=== PATIENT | female | born 1930 | race Caucasian/White ===

== ENCOUNTER 2016-02-10 20:48 | Inpatient (IN) | payer MEDICARE, MEDICAID ==
[~2016-02-10] VITALS: Ht 170.2 cm; Wt 85.7 kg
[~2016-02-10 20:48] MED LIST: ATOR10TA PO; CARV3.122 PO; DEXT1CAP3 PO; FURO40TA5 PO; OLAN2.5T3 PO; OLAN5TAB3 PO
[2016-02-10] MEDS ORDERED: IV NS 0.9% 500 ML BAG IV ONE (21:00)
[2016-02-10] MEDS ORDERED: IV NS 0.9% 1,000 ML BAG IV ONE ×2 (21:00→21:30)
[2016-02-10] MEDS ORDERED: SECONDARY IV SET 1 EA INFUS.SET MC ONE (21:10)
[2016-02-10] MEDS ORDERED: IV SET PRIMARY 1 EA INFUS.SET MC ONE (21:10)
[2016-02-10] MEDS ORDERED: IV NS 0.9% 2,000 ML ONE (21:10)
[2016-02-10] MEDS ORDERED: IV NS 0.9% 500 ML IV ONE (21:10)
[2016-02-10 21:16] LABS: BASOPHILS % (AUTO) 0.1 % (0.0-2.0); DIFF TOTAL % 100 %; EOSINOPHILS % (AUTO) 0.3 % (0.0-6.0); HEMATOCRIT 29 % (33-45); HEMOGLOBIN 9.8 g/dL (11.5-14.8); LYMPHOCYTES # (AUTO) 0.8 /CMM (0.8-4.8); LYMPHOCYTES % (AUTO) 9.4 % (20.0-44.0); MEAN CORPUSCULAR HEMOGLOBIN 25 PG (26.0-33.0); MEAN CORPUSCULAR HGB CONC 34 g/dl (31.0-36.0); MEAN CORPUSCULAR VOLUME 75 fL (82-100); MONOCYTES # (AUTO) 0.8 /CMM (0.1-1.30); MONOCYTES % (AUTO) 8.9 % (2.0-12.0); NEUTROPHILS # (AUTO) 7.3 /CMM (1.8-8.9); NEUTROPHILS % (AUTO) 81.3 % (43.0-81.0); PLATELET COUNT (AUTO) 196 /CMM (150-450); RED BLOOD CELL COUNT(AUTO) 3.87 MIL/uL (4.0-5.2); WHITE BLOOD COUNT (AUTO) 8.9 K/uL (4.3-11.0)
[2016-02-10 21:20] LABS: KETONES,URINE 15 (NEGATIVE); LEUKOCYTE ESTERASE ,URINE Negative (NEGATIVE)
[2016-02-10 21:22] LABS: CALCIUM, SERUM 7.4 mg/dL (8.5-10.1); CREATININE 0.9 mg/dL (0.6-1.3)
[2016-02-10 21:25] LABS: INR 1.13 (0.87-1.13); PROTHROMBIN TIME 11.9 SECS (9.5-12.7)
[2016-02-10 21:28] LABS: ALBUMIN 1.7 g/dL (3.4-5.0); BILIRUBIN,DIRECT 0.3 mg/dL (0.0-0.2); BILIRUBIN,TOTAL 0.8 mg/dL (0.2-1.0); INDIRECT BILIRUBIN 0.5 mg/dL (0.0-1.1); TOTAL PROTEIN, SERUM 5.5 g/dL (6.4-8.2)
[2016-02-10 21:28] LABS: ADD UA MICROSCOPIC YES
[2016-02-10] MEDS ORDERED: ACETAMINOPHEN 650 MG/SUPP.RECT RC ONE ×2 (21:28→21:30)
[2016-02-10 21:29] LABS: TROPONIN I 0.036 ng/mL (0.00-0.056)
[2016-02-10] MEDS ORDERED: VANCOMYCIN 1 GM VIAL ONE (21:29)
[2016-02-10] MEDS ORDERED: IV D5W 250 ML IV ONE (21:29)
[2016-02-10] MEDS ORDERED: IV D5W 50 ML IV ONE (21:29)
[2016-02-10] MEDS ORDERED: PIPERACILLIN /TAZOBACTAM 3.375 G VIAL IV ONE (21:29)
[2016-02-10] MEDS ORDERED: IV SET PRIMARY PUMP SET 1 EA INFUS.SET MC ONE (21:29)
[2016-02-10] MEDS ORDERED: VANCOMYCIN 1 GM in IV D5W 250 ML IV ONE (21:30)
[2016-02-10] MEDS ORDERED: PIPERACILLIN /TAZOBACTAM 3.375 G in IV D5W 50 ML IV ONE (21:30)
[2016-02-10] MEDS ORDERED: CEFT1VIA15 IV (21:37)
[2016-02-10] MEDS ORDERED: ENOX40DI SQ (21:37)
[2016-02-10] MEDS ORDERED: PANT40TA2 PO (21:37)
[2016-02-10] MEDS ORDERED: MIRT15TA PO (21:37)
[2016-02-10 21:45] LABS: ADD URINE CULTURE NO; MUCUS,URINE Few /LPF (None Seen); RBC,URINE 2-3/HPF /HPF (0-2); WBC,URINE 0-2 /HPF (0-3)
[2016-02-10 22:15] VITALS: BP 102/49
[2016-02-10 22:30] VITALS: BP 102/49
[2016-02-10] MEDS ORDERED: ACETAMINOPHEN 650 MG/SUPP.RECT RC PRN (23:00)
[2016-02-10] MEDS ORDERED: IV NS 0.9% 1,000 ML BAG IV SCH (23:00)
[2016-02-10] MEDS ORDERED: ACETAMINOPHEN LIQUID 160 MG/5 ML BOTTLE PO PRN ×2 (23:00)
[2016-02-10] MEDS ORDERED: IV NS 0.9% 1,000 ML ONE (23:03)
[2016-02-11 02:00] VITALS: BP 113/58
[2016-02-11] MEDS ORDERED: SECONDARY IV SET 1 EA INFUS.SET MC ONE ×4 (04:53→15:36)
[2016-02-11] MEDS ORDERED: PIPERACILLIN /TAZOBACTAM 3.375 G VIAL IV ONE (04:53)
[2016-02-11] MEDS ORDERED: IV D5W 50 ML IV ONE (04:53)
[2016-02-11] MEDS: PIPERACILLIN /TAZOBACTAM 3.375 G in IV D5W 50 ML IV SCH ×4 (05:14→17:46)
[2016-02-11 06:47] LABS: BASOPHILS % (AUTO) 0.1 % (0.0-2.0); DIFF TOTAL % 100 %; EOSINOPHILS # (AUTO) 0.1 /CMM (0.0-0.7); HEMATOCRIT 28 % (33-45); LYMPHOCYTES # (AUTO) 0.7 /CMM (0.8-4.8); LYMPHOCYTES % (AUTO) 10.2 % (20.0-44.0); MEAN CORPUSCULAR HEMOGLOBIN 25 PG (26.0-33.0); MEAN CORPUSCULAR HGB CONC 32 g/dl (31.0-36.0); MEAN CORPUSCULAR VOLUME 77 fL (82-100); MONOCYTES # (AUTO) 0.7 /CMM (0.1-1.30); MONOCYTES % (AUTO) 9.8 % (2.0-12.0); NEUTROPHILS # (AUTO) 5.4 /CMM (1.8-8.9); NEUTROPHILS % (AUTO) 78.9 % (43.0-81.0); PLATELET COUNT (AUTO) 192 /CMM (150-450); RED BLOOD CELL COUNT(AUTO) 3.61 MIL/uL (4.0-5.2); WHITE BLOOD COUNT (AUTO) 6.8 K/uL (4.3-11.0)
[2016-02-11 07:09] LABS: CALCIUM, SERUM 7.2 mg/dL (8.5-10.1); CREATININE 0.8 mg/dL (0.6-1.3); POTASSIUM 2.9 mmol/L (3.5-5.1)
[2016-02-11 07:10] LABS: TROPONIN I 0.023 ng/mL (0.00-0.056)
[2016-02-11 08:00] VITALS: BP 120/73
[2016-02-11 08:31] LABS: BAND % (MANUAL) 24 % (0.0-5.0); EOSINOPHILS % (MANUAL) 1 % (0-4); LYMPHOCYTES % (MANUAL) 10 % (16-48); METAMYELOCYTES % 2 % (0-0); PLATELET ESTIMATE ADEQUATE
[2016-02-11 08:35] LABS: ANISOCYTOSIS 1+; HYPOCHROMASIA 1+; MICROCYTOSIS 1+
[2016-02-11] MEDS ORDERED: PANTOPRAZOLE 40 MG VIAL IV SCH ×2 (09:00)
[2016-02-11 09:02] LABS: IRON, SERUM 14 ug/dl (50-175); PERCENT SATURATION 12 % (14-33); TOTAL IRON BINDING CAPACITY 118 ug/dl (250-450)
[2016-02-11] MEDS: OLANZAPINE 2.5 MG TABLET PO SCH (09:07)
[2016-02-11] MEDS: POTASSIUM CL. PREMIX PERIPHER. 50 ML IV SCH ×8 (09:07→16:52)
[2016-02-11] MEDS: CARVEDILOL 3.125 MG TABLET PO SCH ×2 (09:07→16:52)
[2016-02-11] MEDS: ENOXAPARIN SODIUM 30 MG/0.3 ML DISP.SYRIN SQ SCH (09:10)
[2016-02-11 09:19] LABS: CHOLESTEROL 51 mg/dL (<200); LDL 16 mg/dL (0-99); TRIGLYCERIDES 146 mg/dL (30-150)
[2016-02-11 09:20] LABS: HDL CHOLESTEROL < 10 mg/dL (40-60)
[2016-02-11] MEDS ORDERED: FEE PK DOSING 1 MIN EA MC ONE (09:56)
[2016-02-11] MEDS ORDERED: Z GUARD REMEDY 2 OZ OINT TP PRN (10:00)
[2016-02-11] MEDS: IV NS 0.9% 1,000 ML IV PRN (10:38)
[2016-02-11] MEDS: Z GUARD REMEDY 2 OZ OINT TP SCH ×2 (10:45→17:47)
[2016-02-11 11:55] VITALS: BP 116/73
[2016-02-11 12:01] VITALS: BP 116/73
[2016-02-11] MEDS: ALBUTEROL FS 2.5 MG/3 ML VIAL.NEB NEB PRN (12:23)
[2016-02-11] MEDS: VANCOMYCIN 1 GM in IV D5W 250 ML IV SCH (15:42)
[2016-02-11 16:00] VITALS: BP 130/71
[2016-02-11 20:00] VITALS: BP 101/55
[2016-02-11] MEDS: OLANZAPINE 5 MG TABLET PO SCH (21:31)
[2016-02-11] MEDS ORDERED: ATORVASTATIN 10 MG TABLET PO SCH (22:00)
[2016-02-11] MEDS ORDERED: MIRTAZAPINE 15 MG TABLET PO SCH (22:00)
[2016-02-11] MEDS ORDERED: OLANZAPINE 5 MG TABLET PO SCH (22:00)
[2016-02-11] MEDS ORDERED: ACETAMINOPHEN 650 MG/20.3 ML UDC ONE (22:05)
[2016-02-12] VITALS: BP 105/58
[2016-02-12] MEDS: PIPERACILLIN /TAZOBACTAM 3.375 G in IV D5W 50 ML IV SCH ×5 (00:37→23:35)
[2016-02-12] MEDS ORDERED: IV NS 0.9% 1,000 ML ONE (03:08)
[2016-02-12] MEDS: IV NS 0.9% 1,000 ML IV PRN (03:15)
[2016-02-12 04:00] VITALS: BP 105/61
[2016-02-12 06:06] LABS: BASOPHILS % (AUTO) 0.1 % (0.0-2.0); DIFF TOTAL % 100 %; EOSINOPHILS # (AUTO) 0.1 /CMM (0.0-0.7); EOSINOPHILS % (AUTO) 0.6 % (0.0-6.0); HEMATOCRIT 28 % (33-45); LYMPHOCYTES # (AUTO) 0.7 /CMM (0.8-4.8); LYMPHOCYTES % (AUTO) 7.5 % (20.0-44.0); MEAN CORPUSCULAR HEMOGLOBIN 25 PG (26.0-33.0); MEAN CORPUSCULAR HGB CONC 32 g/dl (31.0-36.0); MEAN CORPUSCULAR VOLUME 77 fL (82-100); MONOCYTES # (AUTO) 0.4 /CMM (0.1-1.30); MONOCYTES % (AUTO) 4.1 % (2.0-12.0); NEUTROPHILS # (AUTO) 8.4 /CMM (1.8-8.9); NEUTROPHILS % (AUTO) 87.7 % (43.0-81.0); PLATELET COUNT (AUTO) 177 /CMM (150-450); RED BLOOD CELL COUNT(AUTO) 3.64 MIL/uL (4.0-5.2); WHITE BLOOD COUNT (AUTO) 9.6 K/uL (4.3-11.0)
[2016-02-12 06:55] LABS: TROPONIN I 0.019 ng/mL (0.00-0.056)
[2016-02-12 07:08] LABS: POTASSIUM 3.7 mmol/L (3.5-5.1)
[2016-02-12 07:09] LABS: ALBUMIN 1.5 g/dL (3.4-5.0); BILIRUBIN,TOTAL 0.9 mg/dL (0.2-1.0); CALCIUM, SERUM 7.4 mg/dL (8.5-10.1); PHOSPHORUS 3.2 mg/dL (2.5-4.9)
[2016-02-12 07:10] LABS: TOTAL PROTEIN, SERUM 5.1 g/dL (6.4-8.2)
[2016-02-12 08:00] VITALS: BP 118/71
[2016-02-12] MEDS: Z GUARD REMEDY 2 OZ OINT TP SCH ×2 (09:00→17:35)
[2016-02-12] MEDS: OLANZAPINE 2.5 MG TABLET PO SCH (09:48)
[2016-02-12] MEDS: CARVEDILOL 3.125 MG TABLET PO SCH ×2 (09:49→17:00)
[2016-02-12] MEDS: VANCOMYCIN 1 GM in IV D5W 250 ML IV SCH (09:50)
[2016-02-12] MEDS: ENOXAPARIN SODIUM 30 MG/0.3 ML DISP.SYRIN SQ SCH (09:51)
[2016-02-12] MEDS: ALBUTEROL FS 2.5 MG/3 ML VIAL.NEB NEB PRN ×2 (09:52→17:41)
[2016-02-12 12:00] VITALS: BP 142/68
[2016-02-12 16:00] VITALS: BP 113/53
[2016-02-12] MEDS: SOD FERRIC GLUC 125 MG in IV NS 0.9% 100 ML IV SCH (16:40)
[2016-02-12] MEDS: LACTOBACILLUS RHAMNOSUS GG 1 EACH CAP.SPRINK PO SCH (17:34)
[2016-02-12 20:00] VITALS: BP 103/58
[2016-02-12] MEDS: OLANZAPINE 5 MG TABLET PO SCH (21:25)
[2016-02-12] MEDS ORDERED: BISACODYL SUPP (10 MG) 10 MG/SUPP.RECT SUPP.RECT RC ONE (23:20)
[2016-02-12] MEDS ORDERED: IV NS 0.9% 250 ML IV ONE (23:29)
[2016-02-12] MEDS ORDERED: BISACODYL SUPP (10 MG) 10 MG/SUPP.RECT SUPP.RECT RC PRN (23:30)
[2016-02-13] VITALS (14 sets, daily range): BP systolic 89–126; BP diastolic 44–96
[2016-02-13] MEDS: VANCOMYCIN 1 GM in IV D5W 250 ML IV SCH ×2 (02:55→21:00)
[2016-02-13] MEDS: PIPERACILLIN /TAZOBACTAM 3.375 G in IV D5W 50 ML IV SCH ×3 (05:02→18:21)
[2016-02-13 07:04] LABS: BASOPHILS % (AUTO) 0.1 % (0.0-2.0); DIFF TOTAL % 100 %; EOSINOPHILS % (AUTO) 0.3 % (0.0-6.0); HEMATOCRIT 28 % (33-45); LYMPHOCYTES # (AUTO) 0.8 /CMM (0.8-4.8); LYMPHOCYTES % (AUTO) 7.9 % (20.0-44.0); MEAN CORPUSCULAR HEMOGLOBIN 25 PG (26.0-33.0); MEAN CORPUSCULAR HGB CONC 32 g/dl (31.0-36.0); MEAN CORPUSCULAR VOLUME 77 fL (82-100); MONOCYTES # (AUTO) 0.1 /CMM (0.1-1.30); NEUTROPHILS # (AUTO) 9.1 /CMM (1.8-8.9); NEUTROPHILS % (AUTO) 90.7 % (43.0-81.0); PLATELET COUNT (AUTO) 170 /CMM (150-450); RED BLOOD CELL COUNT(AUTO) 3.64 MIL/uL (4.0-5.2)
[2016-02-13 07:21] LABS: BILIRUBIN,TOTAL 0.7 mg/dL (0.2-1.0); CALCIUM, SERUM 7.6 mg/dL (8.5-10.1); CREATININE 1.2 mg/dL (0.6-1.3); PHOSPHORUS 3.5 mg/dL (2.5-4.9); POTASSIUM 3.6 mmol/L (3.5-5.1); TOTAL PROTEIN, SERUM 5.1 g/dL (6.4-8.2)
[2016-02-13 07:37] LABS: ALBUMIN 1.4 g/dL (3.4-5.0)
[2016-02-13] MEDS: Z GUARD REMEDY 2 OZ OINT TP SCH ×2 (09:50→17:37)
[2016-02-13] MEDS: OLANZAPINE 2.5 MG TABLET PO SCH (09:50)
[2016-02-13] MEDS: CARVEDILOL 3.125 MG TABLET PO SCH ×2 (09:51→17:00)
[2016-02-13] MEDS: LACTOBACILLUS RHAMNOSUS GG 1 EACH CAP.SPRINK PO SCH ×2 (09:51→17:00)
[2016-02-13] MEDS: ENOXAPARIN SODIUM 30 MG/0.3 ML DISP.SYRIN SQ SCH (09:52)
[2016-02-13] MEDS: ALBUTEROL FS 2.5 MG/3 ML VIAL.NEB NEB PRN (12:57)
[2016-02-13 13:02] LABS: ABG BASE EXCESS -8.5 mmol/L; ABG HCO3 14.9 mmol/L; ABG PCO2 24.4 mmHg (35.0-45.0); ABG PH 7.403 (7.350-7.450); ABG PO2 118.7 mmHg (75.0-100.0); ALLEN TEST Pass; AaDO2 174.4 mmHg; O2Hb 95.2 % (94.0-97.0)
[2016-02-13] MEDS: SOD FERRIC GLUC 125 MG in IV NS 0.9% 100 ML IV SCH (15:48)
[2016-02-13 17:21] LABS: ABG BASE EXCESS -9.5 mmol/L; ABG HCO3 13.9 mmol/L; ABG PCO2 23.1 mmHg (35.0-45.0); ABG PH 7.397 (7.350-7.450); ABG PO2 94.6 mmHg (75.0-100.0); ABG TOTAL HEMOGLOBIN 9.9 G/dL (12.0-16.0); AaDO2 113.7 mmHg; O2Hb 93.9 % (94.0-97.0)
[2016-02-13 17:43] LABS: BASOPHILS # (AUTO) 0.1 /CMM (0.0-0.2); BASOPHILS % (AUTO) 0.6 % (0.0-2.0); DIFF TOTAL % 100 %; EOSINOPHILS % (AUTO) 0.1 % (0.0-6.0); HEMATOCRIT 31 % (33-45); HEMOGLOBIN 9.9 g/dL (11.5-14.8); LYMPHOCYTES # (AUTO) 1.3 /CMM (0.8-4.8); LYMPHOCYTES % (AUTO) 8.4 % (20.0-44.0); MEAN CORPUSCULAR HEMOGLOBIN 25 PG (26.0-33.0); MEAN CORPUSCULAR HGB CONC 32 g/dl (31.0-36.0); MEAN CORPUSCULAR VOLUME 76 fL (82-100); MONOCYTES # (AUTO) 0.6 /CMM (0.1-1.30); MONOCYTES % (AUTO) 3.7 % (2.0-12.0); NEUTROPHILS # (AUTO) 13.1 /CMM (1.8-8.9); NEUTROPHILS % (AUTO) 87.2 % (43.0-81.0); PLATELET COUNT (AUTO) 198 /CMM (150-450); RED BLOOD CELL COUNT(AUTO) 4.07 MIL/uL (4.0-5.2)
[2016-02-13 17:49] LABS: CALCIUM, SERUM 8.1 mg/dL (8.5-10.1); CREATININE 1.6 mg/dL (0.6-1.3); POTASSIUM 4.1 mmol/L (3.5-5.1)
[2016-02-13 17:54] LABS: ALBUMIN 1.6 g/dL (3.4-5.0); BILIRUBIN,TOTAL 0.9 mg/dL (0.2-1.0); TOTAL PROTEIN, SERUM 5.4 g/dL (6.4-8.2)
[2016-02-13 18:02] LABS: INR 1.27 (0.87-1.13); PROTHROMBIN TIME 13.8 SECS (9.5-12.7)
[2016-02-13 18:05] LABS: LACTIC ACID 3.4 mmol/L (0.4-2.0)
[2016-02-13] MEDS ORDERED: SECONDARY IV SET 1 EA INFUS.SET MC ONE (18:10)
[2016-02-13] MEDS ORDERED: IV NS 0.9% 1,000 ML ONE (18:25)
[2016-02-13] MEDS ORDERED: IV NS 0.9% 1,000 ML IV PRN (18:30)
[2016-02-13 18:35] LABS: LYMPHOCYTES % (MANUAL) 8 % (16-48); PLATELET ESTIMATE ADEQUATE
[2016-02-13] MEDS ORDERED: SUCCINYLCHOLINE CHLORIDE 20 MG/ML VIAL ONE (18:35)
[2016-02-13 18:36] LABS: ANISOCYTOSIS 1+; HYPOCHROMASIA 1+; MICROCYTOSIS 1+
[2016-02-13 18:40] LABS: *LACTIC ACID REFLEX FLAG YES
[2016-02-13] MEDS ORDERED: ALBUMIN 5% 500 ML IV ONE (18:50)
[2016-02-13] MEDS ORDERED: NOREPINEPHRINE 8 MG in IV D5W 500 ML IV ONE (19:00)
[2016-02-13] MEDS ORDERED: VASOPRESSIN INJ 50 UNIT in IV D5W 500 ML IV ONE (19:00)
[2016-02-13] MEDS ORDERED: CALCIUM CHLORIDE 1,000 MG/10 ML DISP.SYRIN ONE (19:19)
[2016-02-13 19:51] LABS: BILIRUBIN,DIRECT 0.5 mg/dL (0.0-0.2)
[2016-02-13] MEDS ORDERED: CELLULOSE,OXIDIZED 1 EACH EACH MC ONE (21:20)
[2016-02-13] MEDS ORDERED: PROPOFOL 100 ML IV ONE (22:51)
[2016-02-13] MEDS ORDERED: IV SET PRIMARY PUMP SET 1 EA INFUS.SET MC ONE (22:51)
[2016-02-13] MEDS ORDERED: ANESTHESIA TRAY IN PYXIS 1 EA TRAY MC ONE (23:14)
[2016-02-13] MEDS: PROPOFOL 100 ML IV PRN (23:30)
[2016-02-14] VITALS (103 sets, daily range): BP systolic 63–138; BP diastolic 40–117
[2016-02-14 00:16] LABS: ABG BASE EXCESS -8.7 mmol/L; ABG HCO3 15.3 mmol/L; ABG PCO2 26.5 mmHg (35.0-45.0); ABG PH 7.378 (7.350-7.450); ABG PO2 90.1 mmHg (75.0-100.0); ABG TOTAL HEMOGLOBIN 8.9 G/dL (12.0-16.0); ALLEN TEST Pass; AaDO2 92.7 mmHg; O2Hb 92.9 % (94.0-97.0)
[2016-02-14] MEDS ORDERED: FLUCONAZOLE IN NS 100 ML IV ONE (00:16)
[2016-02-14] MEDS: PIPERACILLIN /TAZOBACTAM 3.375 G in IV D5W 50 ML IV SCH ×4 (00:40→17:02)
[2016-02-14] MEDS ORDERED: SECONDARY IV SET 1 EA INFUS.SET MC ONE ×2 (00:52→19:56)
[2016-02-14] MEDS ORDERED: IV SET PRIMARY PUMP SET 1 EA INFUS.SET MC ONE ×3 (01:01→19:56)
[2016-02-14 01:07] LABS: BILIRUBIN,TOTAL 0.8 mg/dL (0.2-1.0); CREATININE 1.3 mg/dL (0.6-1.3); PHOSPHORUS 5.2 mg/dL (2.5-4.9); POTASSIUM 4.4 mmol/L (3.5-5.1); TOTAL PROTEIN, SERUM 1.7 g/dL (6.4-8.2)
[2016-02-14 01:12] LABS: ALBUMIN 0.5 g/dL (3.4-5.0)
[2016-02-14 01:23] LABS: CREATININE 1.3 mg/dL (0.6-1.3); POTASSIUM 4.4 mmol/L (3.5-5.1)
[2016-02-14 01:24] LABS: BILIRUBIN,TOTAL 0.8 mg/dL (0.2-1.0); PHOSPHORUS 5.2 mg/dL (2.5-4.9)
[2016-02-14 01:25] LABS: ALBUMIN 0.5 g/dL (3.4-5.0); TOTAL PROTEIN, SERUM 1.7 g/dL (6.4-8.2)
[2016-02-14] MEDS: FLUCONAZOLE IN NS 100 MG in PREMIX 1 EA IV SCH ×4 (01:26→23:34)
[2016-02-14] MEDS ORDERED: NOREPINEPHRINE 8 MG in IV D5W 500 ML IV PRN (01:30)
[2016-02-14] MEDS ORDERED: IV NS 0.9% 1,000 ML ONE (01:44)
[2016-02-14] MEDS ORDERED: ALBUMIN 25% 100 ML IV ONE (01:44)
[2016-02-14] MEDS ORDERED: ALBUMIN 25% 25 GM in PREMIX 1 EA IV ONE (02:00)
[2016-02-14] MEDS ORDERED: IV NS 0.9% 500 ML IV SCH (02:00)
[2016-02-14] MEDS ORDERED: VASOPRESSIN INJ 50 UNIT in IV D5W 497.5 ML IV PRN (02:00)
[2016-02-14] MEDS: IV NS 0.9% 1,000 ML IV PRN ×2 (03:22→17:42)
[2016-02-14] MEDS ORDERED: IV D5W 500 ML IV ONE (03:37)
[2016-02-14] MEDS ORDERED: NOREPINEPHRINE 4 MG/4 ML AMPUL IV ONE (03:37)
[2016-02-14 04:00] LABS: DIFF TOTAL % 100 %; HEMATOCRIT 25 % (33-45); HEMOGLOBIN 7.9 g/dL (11.5-14.8); LYMPHOCYTES # (AUTO) 1.9 /CMM (0.8-4.8); LYMPHOCYTES % (AUTO) 9.4 % (20.0-44.0); MEAN CORPUSCULAR HEMOGLOBIN 24 PG (26.0-33.0); MEAN CORPUSCULAR HGB CONC 31 g/dl (31.0-36.0); MEAN CORPUSCULAR VOLUME 77 fL (82-100); MONOCYTES % (AUTO) 24.3 % (2.0-12.0); NEUTROPHILS # (AUTO) 13.7 /CMM (1.8-8.9); NEUTROPHILS % (AUTO) 66.3 % (43.0-81.0); PLATELET COUNT (AUTO) 174 /CMM (150-450); RED BLOOD CELL COUNT(AUTO) 3.29 MIL/uL (4.0-5.2); WHITE BLOOD COUNT (AUTO) 20.7 K/uL (4.3-11.0)
[2016-02-14] MEDS: NOREPINEPHRINE 8 MG in IV D5W 500 ML IV PRN ×2 (04:09→08:36)
[2016-02-14] MEDS ORDERED: IV NS 0.9% 500 ML IV ONE ×2 (04:48→07:46)
[2016-02-14 05:28] LABS: CALCIUM, SERUM 7.2 mg/dL (8.5-10.1); CREATININE 1.5 mg/dL (0.6-1.3); PHOSPHORUS 4.9 mg/dL (2.5-4.9); POTASSIUM 3.8 mmol/L (3.5-5.1)
[2016-02-14 06:19] LABS: HEMOGLOBIN 7.8 g/dL (11.5-14.8)
[2016-02-14] MEDS ORDERED: PROPOFOL 100 ML IV ONE (06:29)
[2016-02-14] MEDS: PROPOFOL 100 ML IV PRN ×2 (06:45→15:29)
[2016-02-14] MEDS ORDERED: BLOOD IV SET 1 EA INFUS.SET MC ONE (07:46)
[2016-02-14] MEDS: Z GUARD REMEDY 2 OZ OINT TP SCH ×2 (08:42→17:02)
[2016-02-14] MEDS: ENOXAPARIN SODIUM 30 MG/0.3 ML DISP.SYRIN SQ SCH (08:42)
[2016-02-14] MEDS: SOD FERRIC GLUC 125 MG in IV NS 0.9% 100 ML IV SCH (14:01)
[2016-02-14] MEDS: NOREPINEPHRINE 16 MG in IV D5W 500 ML IV PRN (14:02)
[2016-02-15] VITALS (84 sets, daily range): BP systolic 84–139; BP diastolic 42–78
[2016-02-15] MEDS: PIPERACILLIN /TAZOBACTAM 3.375 G in IV D5W 50 ML IV SCH ×5 (00:32→23:12)
[2016-02-15] MEDS: PROPOFOL 100 ML IV PRN ×3 (00:33→22:47)
[2016-02-15] MEDS: IV NS 0.9% 1,000 ML IV PRN ×2 (04:41→16:17)
[2016-02-15] MEDS: IV NS 0.9% 500 ML IV PRN ×2 (04:42→09:22)
[2016-02-15 05:30] LABS: BASOPHILS % (AUTO) 0.1 % (0.0-2.0); DIFF TOTAL % 100 %; EOSINOPHILS % (AUTO) 0.1 % (0.0-6.0); HEMATOCRIT 31 % (33-45); HEMOGLOBIN 10.1 g/dL (11.5-14.8); LYMPHOCYTES # (AUTO) 1.5 /CMM (0.8-4.8); LYMPHOCYTES % (AUTO) 5.6 % (20.0-44.0); MEAN CORPUSCULAR HEMOGLOBIN 26 PG (26.0-33.0); MEAN CORPUSCULAR HGB CONC 33 g/dl (31.0-36.0); MEAN CORPUSCULAR VOLUME 80 fL (82-100); MONOCYTES # (AUTO) 0.1 /CMM (0.1-1.30); MONOCYTES % (AUTO) 0.5 % (2.0-12.0); NEUTROPHILS # (AUTO) 25.7 /CMM (1.8-8.9); NEUTROPHILS % (AUTO) 93.7 % (43.0-81.0); PLATELET COUNT (AUTO) 106 /CMM (150-450); RED BLOOD CELL COUNT(AUTO) 3.85 MIL/uL (4.0-5.2); WHITE BLOOD COUNT (AUTO) 27.5 K/uL (4.3-11.0)
[2016-02-15 05:38] LABS: BILIRUBIN,TOTAL 1.7 mg/dL (0.2-1.0); CALCIUM, SERUM 7.2 mg/dL (8.5-10.1); PHOSPHORUS 4.7 mg/dL (2.5-4.9); POTASSIUM 3.9 mmol/L (3.5-5.1)
[2016-02-15 05:39] LABS: TROPONIN I 0.028 ng/mL (0.00-0.056)
[2016-02-15] MEDS: NOREPINEPHRINE 16 MG in IV D5W 500 ML IV PRN ×2 (05:39→17:12)
[2016-02-15 06:11] LABS: ALBUMIN 1.3 g/dL (3.4-5.0)
[2016-02-15 08:32] LABS: ABG BASE EXCESS -9.8 mmol/L; ABG HCO3 13.1 mmol/L; ABG PCO2 21.3 mmHg (35.0-45.0); ABG PH 7.406 (7.350-7.450); ABG TOTAL HEMOGLOBIN 10.8 G/dL (12.0-16.0); ALLEN TEST Pass; AaDO2 187.5 mmHg
[2016-02-15] MEDS ORDERED: IV NS 0.9% 500 ML IV ONE ×2 (09:06→09:30)
[2016-02-15] MEDS ORDERED: IV SET PRIMARY PUMP SET 1 EA INFUS.SET MC ONE (09:07)
[2016-02-15] MEDS: VANCOMYCIN 1 GM in IV D5W 250 ML IV SCH (09:18)
[2016-02-15] MEDS: Z GUARD REMEDY 2 OZ OINT TP SCH ×2 (09:19→16:17)
[2016-02-15] MEDS: ENOXAPARIN SODIUM 30 MG/0.3 ML DISP.SYRIN SQ SCH (09:19)
[2016-02-15] MEDS: ALBUMIN 25% 25 GM in PREMIX 1 EA IV SCH ×3 (13:08→22:39)
[2016-02-15 14:54] LABS: ANISOCYTOSIS 1+; BAND % (MANUAL) 2 % (0.0-5.0); LYMPHOCYTES % (MANUAL) 10 % (16-48); PLATELET ESTIMATE DECREASED
[2016-02-15 14:55] LABS: MICROCYTOSIS 1+
[2016-02-15] MEDS: SOD FERRIC GLUC 125 MG in IV NS 0.9% 100 ML IV SCH (16:16)
[2016-02-15] MEDS: FLUCONAZOLE IN NS 100 MG in PREMIX 1 EA IV SCH ×2 (22:41)
[2016-02-16] VITALS (72 sets, daily range): BP systolic 87–145; BP diastolic 46–70
[2016-02-16] MEDS: IV NS 0.9% 1,000 ML IV PRN (03:24)
[2016-02-16 05:19] LABS: BASOPHILS % (AUTO) 0.2 % (0.0-2.0); DIFF TOTAL % 100 %; EOSINOPHILS % (AUTO) 0.2 % (0.0-6.0); HEMATOCRIT 26 % (33-45); HEMOGLOBIN 8.5 g/dL (11.5-14.8); LYMPHOCYTES # (AUTO) 0.9 /CMM (0.8-4.8); MEAN CORPUSCULAR HEMOGLOBIN 27 PG (26.0-33.0); MEAN CORPUSCULAR HGB CONC 33 g/dl (31.0-36.0); MEAN CORPUSCULAR VOLUME 80 fL (82-100); MONOCYTES # (AUTO) 0.2 /CMM (0.1-1.30); MONOCYTES % (AUTO) 0.9 % (2.0-12.0); NEUTROPHILS % (AUTO) 93.7 % (43.0-81.0); PLATELET COUNT (AUTO) 57 /CMM (150-450); RED BLOOD CELL COUNT(AUTO) 3.19 MIL/uL (4.0-5.2); WHITE BLOOD COUNT (AUTO) 18.1 K/uL (4.3-11.0)
[2016-02-16 05:30] LABS: PHOSPHORUS 4.5 mg/dL (2.5-4.9); POTASSIUM 3.1 mmol/L (3.5-5.1)
[2016-02-16] MEDS: ALBUMIN 25% 25 GM in PREMIX 1 EA IV SCH (05:30)
[2016-02-16] MEDS: PIPERACILLIN /TAZOBACTAM 3.375 G in IV D5W 50 ML IV SCH ×3 (05:30→18:15)
[2016-02-16 05:58] LABS: BAND % (MANUAL) 7 % (0.0-5.0); LYMPHOCYTES % (MANUAL) 5 % (16-48)
[2016-02-16 05:59] LABS: ANISOCYTOSIS 1+; BASOPHILS % (MANUAL) 0 % (0.0-2.0); EOSINOPHILS % (MANUAL) 0 % (0-4); HYPOCHROMASIA 2+; OVALOCYTES 1+; PLATELET ESTIMATE DECREASED; SCHISTOCYTES 1+
[2016-02-16] MEDS ORDERED: IV NS 0.9% 500 ML IV ONE (06:03)
[2016-02-16] MEDS: POTASSIUM CL. PREMIX PERIPHER. 50 ML IV SCH ×2 (09:44→10:52)
[2016-02-16] MEDS: Z GUARD REMEDY 2 OZ OINT TP SCH ×2 (09:45→16:26)
[2016-02-16] MEDS: ENOXAPARIN SODIUM 30 MG/0.3 ML DISP.SYRIN SQ SCH (09:45)
[2016-02-16 10:23] LABS: ABG BASE EXCESS -11.7 mmol/L; ABG HCO3 14.2 mmol/L; ABG PCO2 31.8 mmHg (35.0-45.0); ABG PH 7.267 (7.350-7.450); ABG PO2 159.3 mmHg (75.0-100.0); ABG TOTAL HEMOGLOBIN 8.8 G/dL (12.0-16.0); ALLEN TEST Pass; AaDO2 161.4 mmHg; O2Hb 95.9 % (94.0-97.0)
[2016-02-16] MEDS: NOREPINEPHRINE 16 MG in IV D5W 500 ML IV PRN (12:07)
[2016-02-16] MEDS: SOD FERRIC GLUC 125 MG in IV NS 0.9% 100 ML IV SCH (16:26)
[2016-02-16] MEDS ORDERED: IV SET PRIMARY PUMP SET 1 EA INFUS.SET MC ONE (16:43)
[2016-02-16] MEDS: VANCOMYCIN 1 GM in IV D5W 250 ML IV SCH (20:05)
[2016-02-16] MEDS: PROPOFOL 100 ML IV PRN (20:06)
[2016-02-16] MEDS: FLUCONAZOLE IN NS 100 MG in PREMIX 1 EA IV SCH ×2 (23:39)
[2016-02-17] VITALS (56 sets, daily range): BP systolic 87–130; BP diastolic 44–96
[2016-02-17] MEDS: PIPERACILLIN /TAZOBACTAM 3.375 G in IV D5W 50 ML IV SCH ×5 (00:25→23:00)
[2016-02-17] MEDS ORDERED: IV NS 0.9% 250 ML IV ONE (01:26)
[2016-02-17] MEDS ORDERED: IV NS 0.9% 500 ML IV ONE (01:27)
[2016-02-17 06:01] LABS: CALCIUM, SERUM 7.4 mg/dL (8.5-10.1); CREATININE 1.9 mg/dL (0.6-1.3); POTASSIUM 2.9 mmol/L (3.5-5.1)
[2016-02-17 06:24] LABS: CREATININE, URINE 34.4 MG/DL (30.0-125.0)
[2016-02-17 06:42] LABS: KETONES,URINE NEGATIVE (NEGATIVE); LEUKOCYTE ESTERASE ,URINE NEGATIVE (NEGATIVE); PH,URINE 5.5 (5.0-8.0)
[2016-02-17 06:51] LABS: ADD UA MICROSCOPIC YES
[2016-02-17 08:39] LABS: ABG BASE EXCESS -7.9 mmol/L; ABG PCO2 22.7 mmHg (35.0-45.0); ABG PH 7.439 (7.350-7.450); ABG PO2 101.5 mmHg (75.0-100.0); ABG TOTAL HEMOGLOBIN 8.6 G/dL (12.0-16.0); ALLEN TEST Pass; AaDO2 121.7 mmHg; O2Hb 94.8 % (94.0-97.0)
[2016-02-17] MEDS ORDERED: SECONDARY IV SET 1 EA INFUS.SET MC ONE (08:53)
[2016-02-17] MEDS: POTASSIUM CL. PREMIX PERIPHER. 50 ML IV SCH ×10 (08:54→18:57)
[2016-02-17] MEDS: ENOXAPARIN SODIUM 30 MG/0.3 ML DISP.SYRIN SQ SCH (08:57)
[2016-02-17] MEDS: Z GUARD REMEDY 2 OZ OINT TP SCH ×2 (08:59→16:56)
[2016-02-17] MEDS ORDERED: IV SET PRIMARY PUMP SET 1 EA INFUS.SET MC ONE ×4 (10:20→21:34)
[2016-02-17 10:25] LABS: ADD URINE CULTURE NO; WBC,URINE 0-2 /HPF (0-3)
[2016-02-17] MEDS: PROPOFOL 100 ML IV PRN (10:25)
[2016-02-17 11:22] LABS: BASOPHILS # (AUTO) 0.2 /CMM (0.0-0.2); DIFF TOTAL % 100 %; EOSINOPHILS # (AUTO) 0.1 /CMM (0.0-0.7); EOSINOPHILS % (AUTO) 0.3 % (0.0-6.0); HEMATOCRIT 26 % (33-45); HEMOGLOBIN 8.6 g/dL (11.5-14.8); LYMPHOCYTES # (AUTO) 0.8 /CMM (0.8-4.8); LYMPHOCYTES % (AUTO) 4.1 % (20.0-44.0); MEAN CORPUSCULAR HEMOGLOBIN 26 PG (26.0-33.0); MEAN CORPUSCULAR HGB CONC 33 g/dl (31.0-36.0); MEAN CORPUSCULAR VOLUME 79 fL (82-100); MONOCYTES # (AUTO) 0.2 /CMM (0.1-1.30); MONOCYTES % (AUTO) 0.9 % (2.0-12.0); NEUTROPHILS # (AUTO) 18.1 /CMM (1.8-8.9); NEUTROPHILS % (AUTO) 93.7 % (43.0-81.0); WHITE BLOOD COUNT (AUTO) 19.4 K/uL (4.3-11.0)
[2016-02-17 11:24] LABS: PLATELET COUNT (AUTO) 49 /CMM (150-450)
[2016-02-17 12:19] LABS: BAND % (MANUAL) 4 % (0.0-5.0); LYMPHOCYTES % (MANUAL) 6 % (16-48)
[2016-02-17 12:20] LABS: ANISOCYTOSIS 1+; HYPOCHROMASIA 1+; PLATELET ESTIMATE DECREASED
[2016-02-17] MEDS: MICAFUNGIN SODIUM 100 MG in IV NS 0.9% 100 ML IV SCH (18:25)
[2016-02-18] VITALS (81 sets, daily range): BP systolic 69–133; BP diastolic 45–73
[2016-02-18] MEDS ORDERED: IV NS 0.9% 500 ML IV ONE (02:57)
[2016-02-18] MEDS: PROPOFOL 100 ML IV PRN (03:05)
[2016-02-18 05:19] LABS: BASOPHILS % (AUTO) 0.1 % (0.0-2.0); DIFF TOTAL % 100 %; EOSINOPHILS % (AUTO) 0.2 % (0.0-6.0); HEMATOCRIT 27 % (33-45); LYMPHOCYTES # (AUTO) 0.9 /CMM (0.8-4.8); LYMPHOCYTES % (AUTO) 4.2 % (20.0-44.0); MEAN CORPUSCULAR HEMOGLOBIN 26 PG (26.0-33.0); MEAN CORPUSCULAR HGB CONC 34 g/dl (31.0-36.0); MEAN CORPUSCULAR VOLUME 78 fL (82-100); MONOCYTES # (AUTO) 0.2 /CMM (0.1-1.30); NEUTROPHILS # (AUTO) 20.6 /CMM (1.8-8.9); NEUTROPHILS % (AUTO) 94.5 % (43.0-81.0); PLATELET COUNT (AUTO) 72 /CMM (150-450); RED BLOOD CELL COUNT(AUTO) 3.42 MIL/uL (4.0-5.2); WHITE BLOOD COUNT (AUTO) 21.8 K/uL (4.3-11.0)
[2016-02-18] MEDS: PIPERACILLIN /TAZOBACTAM 3.375 G in IV D5W 50 ML IV SCH ×4 (05:21→23:15)
[2016-02-18 05:40] LABS: ALBUMIN 1.5 g/dL (3.4-5.0); CALCIUM, SERUM 7.8 mg/dL (8.5-10.1); CREATININE 1.7 mg/dL (0.6-1.3); PHOSPHORUS 3.5 mg/dL (2.5-4.9); POTASSIUM 3.8 mmol/L (3.5-5.1); TOTAL PROTEIN, SERUM 4.4 g/dL (6.4-8.2)
[2016-02-18 06:09] LABS: ANISOCYTOSIS 1+; BAND % (MANUAL) 6 % (0.0-5.0); BASOPHILS % (MANUAL) 0 % (0.0-2.0); EOSINOPHILS % (MANUAL) 0 % (0-4); HYPOCHROMASIA 1+; LYMPHOCYTES % (MANUAL) 8 % (16-48); PLATELET ESTIMATE DECREASED; TARGET CELLS 1+
[2016-02-18 10:44] LABS: ABG HCO3 17.7 mmol/L; ABG PCO2 25.2 mmHg (35.0-45.0); ABG PH 7.464 (7.350-7.450); ABG PO2 78.6 mmHg (75.0-100.0); ABG TOTAL HEMOGLOBIN 9.6 G/dL (12.0-16.0); AaDO2 105.7 mmHg
[2016-02-18] MEDS ORDERED: IV SET PRIMARY PUMP SET 1 EA INFUS.SET MC ONE (11:18)
[2016-02-18] MEDS ORDERED: SECONDARY IV SET 1 EA INFUS.SET MC ONE (11:19)
[2016-02-18] MEDS: Z GUARD REMEDY 2 OZ OINT TP SCH ×2 (11:29→18:54)
[2016-02-18] MEDS ORDERED: TPN BAG #1 IV SCH ×4 (17:00)
[2016-02-18] MEDS ORDERED: TPN/PPN PER PHARMACY XX PRN (17:00)
[2016-02-18] MEDS ORDERED: TPN/PPN PER PHARMACY IV PRN (17:00)
[2016-02-18] MEDS ORDERED: FEE TPN 1 MIN EA MC ONE (17:09)
[2016-02-18] MEDS: BLOOD SUGAR DIAGNOSTIC 1 EACH STRIP IN SCH ×2 (18:54→23:09)
[2016-02-18] MEDS: MICAFUNGIN SODIUM 100 MG in IV NS 0.9% 100 ML IV SCH (18:55)
[2016-02-18] MEDS: INSULIN REGULAR, HUMAN 100 UNIT/ML 3 ML VIAL SQ PRN ×2 (19:16→23:13)
[2016-02-19] VITALS (39 sets, daily range): BP systolic 91–137; BP diastolic 46–76
[2016-02-19 05:01] LABS: CALCIUM, SERUM 7.7 mg/dL (8.5-10.1); CREATININE 1.6 mg/dL (0.6-1.3); PHOSPHORUS 3.2 mg/dL (2.5-4.9)
[2016-02-19] MEDS ORDERED: IV NS 0.9% 500 ML IV ONE (05:20)
[2016-02-19 05:28] LABS: POTASSIUM 2.8 mmol/L (3.5-5.1)
[2016-02-19] MEDS: BLOOD SUGAR DIAGNOSTIC 1 EACH STRIP IN SCH ×4 (05:52→23:47)
[2016-02-19] MEDS: PIPERACILLIN /TAZOBACTAM 3.375 G in IV D5W 50 ML IV SCH ×4 (05:53→23:40)
[2016-02-19] MEDS: INSULIN REGULAR, HUMAN 100 UNIT/ML 3 ML VIAL SQ PRN ×4 (05:56→23:43)
[2016-02-19] MEDS ORDERED: POTASSIUM CL. PREMIX PERIPHER. 50 ML ONE (06:10)
[2016-02-19] MEDS: POTASSIUM CL. PREMIX PERIPHER. 50 ML IV SCH ×8 (06:14→17:34)
[2016-02-19 08:31] LABS: DIFF TOTAL % 100 %; EOSINOPHILS % (AUTO) 0.2 % (0.0-6.0); HEMATOCRIT 27 % (33-45); LYMPHOCYTES # (AUTO) 1.2 /CMM (0.8-4.8); LYMPHOCYTES % (AUTO) 6.2 % (20.0-44.0); MEAN CORPUSCULAR HEMOGLOBIN 26 PG (26.0-33.0); MEAN CORPUSCULAR HGB CONC 33 g/dl (31.0-36.0); MEAN CORPUSCULAR VOLUME 79 fL (82-100); MONOCYTES # (AUTO) 0.2 /CMM (0.1-1.30); MONOCYTES % (AUTO) 1.1 % (2.0-12.0); NEUTROPHILS # (AUTO) 17.9 /CMM (1.8-8.9); NEUTROPHILS % (AUTO) 92.5 % (43.0-81.0); PLATELET COUNT (AUTO) 112 /CMM (150-450); RED BLOOD CELL COUNT(AUTO) 3.46 MIL/uL (4.0-5.2); WHITE BLOOD COUNT (AUTO) 19.4 K/uL (4.3-11.0)
[2016-02-19] MEDS: Z GUARD REMEDY 2 OZ OINT TP SCH ×2 (08:51→16:29)
[2016-02-19] MEDS ORDERED: TPN BAG #2 IV PRN ×6 (09:00)
[2016-02-19 09:58] LABS: ABG BASE EXCESS -4.2 mmol/L; ABG HCO3 17.7 mmol/L; ABG PCO2 22.5 mmHg (35.0-45.0); ABG PH 7.513 (7.350-7.450); ABG PO2 87.7 mmHg (75.0-100.0); ABG TOTAL HEMOGLOBIN 9.1 G/dL (12.0-16.0); AaDO2 99.8 mmHg; O2Hb 93.6 % (94.0-97.0)
[2016-02-19] MEDS ORDERED: FILTER SET SAVER IV SET 1 EA INFUS.SET MC ONE (15:15)
[2016-02-19] MEDS ORDERED: IV SET PRIMARY PUMP SET 1 EA INFUS.SET MC ONE ×2 (15:15→16:35)
[2016-02-19] MEDS: PROPOFOL 100 ML IV PRN (16:40)
[2016-02-19] MEDS: MICAFUNGIN SODIUM 100 MG in IV NS 0.9% 100 ML IV SCH (17:42)
[2016-02-20] VITALS (52 sets, daily range): BP systolic 90–121; BP diastolic 45–67
[2016-02-20] MEDS ORDERED: IV NS 0.9% 500 ML IV ONE (01:07)
[2016-02-20] MEDS ORDERED: IV SET PRIMARY PUMP SET 1 EA INFUS.SET MC ONE ×2 (01:07→11:12)
[2016-02-20] MEDS: PROPOFOL 100 ML IV PRN ×3 (01:14→20:22)
[2016-02-20] MEDS: PIPERACILLIN /TAZOBACTAM 3.375 G in IV D5W 50 ML IV SCH (05:09)
[2016-02-20 05:13] LABS: CALCIUM, SERUM 7.6 mg/dL (8.5-10.1); CREATININE 1.4 mg/dL (0.6-1.3); PHOSPHORUS 2.1 mg/dL (2.5-4.9); POTASSIUM 3.8 mmol/L (3.5-5.1)
[2016-02-20] MEDS: INSULIN REGULAR, HUMAN 100 UNIT/ML 3 ML VIAL SQ PRN ×4 (05:13→23:09)
[2016-02-20] MEDS: BLOOD SUGAR DIAGNOSTIC 1 EACH STRIP IN SCH ×4 (05:14→23:07)
[2016-02-20] MEDS: Z GUARD REMEDY 2 OZ OINT TP SCH ×2 (09:28→17:01)
[2016-02-20] MEDS ORDERED: TPN BAG #3 IV PRN ×6 (10:00)
[2016-02-20] MEDS ORDERED: FILTER SET SAVER IV SET 1 EA INFUS.SET MC ONE (11:12)
[2016-02-20] MEDS: PIPERACILLIN /TAZOBACTAM 2.25 G in IV D5W 50 ML IV SCH ×3 (12:11→23:11)
[2016-02-20] MEDS: IV NS 0.9% 250 ML IV PRN (12:12)
[2016-02-20 14:34] LABS: ABG BASE EXCESS -3.4 mmol/L; ABG HCO3 18.8 mmol/L; ABG PH 7.511 (7.350-7.450); ABG PO2 83.2 mmHg (75.0-100.0); ABG TOTAL HEMOGLOBIN 8.5 G/dL (12.0-16.0); ALLEN TEST Pass; AaDO2 102.5 mmHg; O2Hb 92.4 % (94.0-97.0)
[2016-02-20] MEDS ORDERED: TPN BAG #1 IV PRN ×4 (14:42)
[2016-02-20] MEDS: MICAFUNGIN SODIUM 100 MG in IV NS 0.9% 100 ML IV SCH (17:01)
[2016-02-21] VITALS (52 sets, daily range): BP systolic 93–124; BP diastolic 49–74
[2016-02-21] MEDS ORDERED: TPN BAG#4 IV PRN ×4 (01:00)
[2016-02-21 05:24] LABS: CALCIUM, SERUM 7.3 mg/dL (8.5-10.1); CREATININE 1.3 mg/dL (0.6-1.3); PHOSPHORUS 2.8 mg/dL (2.5-4.9); POTASSIUM 4.4 mmol/L (3.5-5.1)
[2016-02-21] MEDS ORDERED: IV SET PRIMARY PUMP SET 1 EA INFUS.SET MC ONE ×3 (05:28→17:15)
[2016-02-21] MEDS: PIPERACILLIN /TAZOBACTAM 2.25 G in IV D5W 50 ML IV SCH ×3 (05:47→18:06)
[2016-02-21] MEDS: BLOOD SUGAR DIAGNOSTIC 1 EACH STRIP IN SCH ×3 (05:52→18:04)
[2016-02-21] MEDS: INSULIN REGULAR, HUMAN 100 UNIT/ML 3 ML VIAL SQ PRN ×3 (05:54→18:55)
[2016-02-21] MEDS: PROPOFOL 100 ML IV PRN ×2 (06:04→18:04)
[2016-02-21] MEDS: Z GUARD REMEDY 2 OZ OINT TP SCH ×2 (09:17→17:00)
[2016-02-21 09:22] LABS: BASOPHILS % (AUTO) 0.1 % (0.0-2.0); DIFF TOTAL % 100 %; EOSINOPHILS # (AUTO) 0.2 /CMM (0.0-0.7); EOSINOPHILS % (AUTO) 0.7 % (0.0-6.0); HEMATOCRIT 25 % (33-45); HEMOGLOBIN 8.2 g/dL (11.5-14.8); LYMPHOCYTES # (AUTO) 1.5 /CMM (0.8-4.8); LYMPHOCYTES % (AUTO) 6.8 % (20.0-44.0); MEAN CORPUSCULAR HEMOGLOBIN 26 PG (26.0-33.0); MEAN CORPUSCULAR HGB CONC 33 g/dl (31.0-36.0); MEAN CORPUSCULAR VOLUME 81 fL (82-100); MONOCYTES # (AUTO) 0.6 /CMM (0.1-1.30); MONOCYTES % (AUTO) 2.4 % (2.0-12.0); NEUTROPHILS # (AUTO) 20.6 /CMM (1.8-8.9); PLATELET COUNT (AUTO) 157 /CMM (150-450); RED BLOOD CELL COUNT(AUTO) 3.11 MIL/uL (4.0-5.2); WHITE BLOOD COUNT (AUTO) 22.9 K/uL (4.3-11.0)
[2016-02-21 10:40] LABS: ABG HCO3 23.5 mmol/L; ABG PCO2 31.1 mmHg (35.0-45.0); ABG PH 7.497 (7.350-7.450); ABG PO2 84.7 mmHg (75.0-100.0); ABG TOTAL HEMOGLOBIN 12.3 G/dL (12.0-16.0); ALLEN TEST Pass; AaDO2 92.7 mmHg; O2Hb 93.8 % (94.0-97.0)
[2016-02-21 11:05] LABS: ANISOCYTOSIS 1+; BAND % (MANUAL) 6 % (0.0-5.0); EOSINOPHILS % (MANUAL) 1 % (0-4); HYPOCHROMASIA 1+; LYMPHOCYTES % (MANUAL) 8 % (16-48); PLATELET ESTIMATE DECREASED; POLYCHROMASIA 1+
[2016-02-21] MEDS ORDERED: DAKINS QUARTER STRENGTH (0.125%) 480 ML BOTTLE TOP SCH (14:30)
[2016-02-21] MEDS ORDERED: TPN BAG#5 IV PRN ×6 (16:00)
[2016-02-21] MEDS: MICAFUNGIN SODIUM 100 MG in IV NS 0.9% 100 ML IV SCH (18:01)
[2016-02-21] MEDS: DAKINS QUARTER STRENGTH (0.125%) 480 ML BOTTLE TOP SCH (18:04)
[2016-02-21] MEDS ORDERED: IV FILTER 5 MICRON 1 EA INFUS.SET MC ONE (19:04)
[2016-02-21] MEDS ORDERED: FILTER SET SAVER IV SET 1 EA INFUS.SET MC ONE (19:05)
[2016-02-21] MEDS: PANTOPRAZOLE 40 MG VIAL IV SCH (19:59)
[2016-02-22] VITALS (60 sets, daily range): BP systolic 89–138; BP diastolic 48–85
[2016-02-22] MEDS: BLOOD SUGAR DIAGNOSTIC 1 EACH STRIP IN SCH ×5 (00:16→23:15)
[2016-02-22] MEDS: PIPERACILLIN /TAZOBACTAM 2.25 G in IV D5W 50 ML IV SCH ×5 (00:16→23:15)
[2016-02-22] MEDS: INSULIN REGULAR, HUMAN 100 UNIT/ML 3 ML VIAL SQ PRN ×4 (00:26→18:18)
[2016-02-22 04:37] LABS: HEMATOCRIT 24 % (33-45); HEMOGLOBIN 7.9 g/dL (11.5-14.8); MEAN CORPUSCULAR HEMOGLOBIN 26 PG (26.0-33.0); MEAN CORPUSCULAR HGB CONC 33 g/dl (31.0-36.0); MEAN CORPUSCULAR VOLUME 81 fL (82-100); PLATELET COUNT (AUTO) 171 /CMM (150-450); RED BLOOD CELL COUNT(AUTO) 3.01 MIL/uL (4.0-5.2); WHITE BLOOD COUNT (AUTO) 22.8 K/uL (4.3-11.0)
[2016-02-22 04:50] LABS: CALCIUM, SERUM 7.6 mg/dL (8.5-10.1); CREATININE 1.3 mg/dL (0.6-1.3); PHOSPHORUS 3.4 mg/dL (2.5-4.9); POTASSIUM 3.7 mmol/L (3.5-5.1)
[2016-02-22] MEDS ORDERED: IV SET PRIMARY PUMP SET 1 EA INFUS.SET MC ONE ×2 (04:51→09:12)
[2016-02-22] MEDS: PROPOFOL 100 ML IV PRN ×2 (04:55→19:42)
[2016-02-22] MEDS ORDERED: TPN BAG #6 IV PRN ×4 (05:00)
[2016-02-22 05:22] LABS: PROTHROMBIN TIME 10.8 SECS (9.5-12.7)
[2016-02-22] MEDS ORDERED: IV NS 0.9% 500 ML IV ONE ×2 (05:52→21:54)
[2016-02-22 05:56] LABS: ANISOCYTOSIS 1+; BAND % (MANUAL) 5 % (0.0-5.0); EOSINOPHILS % (MANUAL) 0 % (0-4); HYPOCHROMASIA 1+; LYMPHOCYTES % (MANUAL) 6 % (16-48); METAMYELOCYTES % 1 % (0-0); OVALOCYTES 1+; PLATELET ESTIMATE ADEQUATE; TARGET CELLS 1+
[2016-02-22] MEDS: IV NS 0.9% 250 ML IV PRN (06:00)
[2016-02-22 09:22] LABS: ABG BASE EXCESS 0.4 mmol/L; ABG HCO3 23.8 mmol/L; ABG PCO2 33.5 mmHg (35.0-45.0); ABG PO2 90.6 mmHg (75.0-100.0); ABG TOTAL HEMOGLOBIN 8.3 G/dL (12.0-16.0); ALLEN TEST Pass; AaDO2 83.9 mmHg; O2Hb 92.6 % (94.0-97.0)
[2016-02-22] MEDS: Z GUARD REMEDY 2 OZ OINT TP SCH ×2 (09:58→19:15)
[2016-02-22] MEDS: DAKINS QUARTER STRENGTH (0.125%) 480 ML BOTTLE TOP SCH ×2 (09:59→21:09)
[2016-02-22] MEDS ORDERED: FILTER SET SAVER IV SET 1 EA INFUS.SET MC ONE (10:15)
[2016-02-22] MEDS ORDERED: TPN BAG#7 IV PRN ×7 (15:00)
[2016-02-22] MEDS ORDERED: TPN BAG #8 IV PRN ×5 (15:00)
[2016-02-22] MEDS: HYDROMORPHONE 1 MG/1 ML DISP.SYRIN IV PRN (16:01)
[2016-02-22] MEDS: MICAFUNGIN SODIUM 100 MG in IV NS 0.9% 100 ML IV SCH (18:13)
[2016-02-22] MEDS: PANTOPRAZOLE 40 MG VIAL IV SCH (21:09)
[2016-02-22] MEDS ORDERED: BARIUM SULFATE SUSP 450 ML BOTTLE PO ONE (21:15)
[2016-02-22] MEDS ORDERED: IV NS 0.9% 250 ML IV ONE (23:57)
[2016-02-22] MEDS ORDERED: IOHEXOL-300 100 ML VIAL IV ONE (23:58)
[2016-02-23] VITALS (41 sets, daily range): BP systolic 86–136; BP diastolic 35–73
[2016-02-23 04:50] LABS: HEMATOCRIT 24 % (33-45); HEMOGLOBIN 7.9 g/dL (11.5-14.8); MEAN CORPUSCULAR HEMOGLOBIN 27 PG (26.0-33.0); MEAN CORPUSCULAR HGB CONC 34 g/dl (31.0-36.0); MEAN CORPUSCULAR VOLUME 82 fL (82-100); PLATELET COUNT (AUTO) 173 /CMM (150-450); WHITE BLOOD COUNT (AUTO) 25.7 K/uL (4.3-11.0)
[2016-02-23] MEDS: HYDROMORPHONE 1 MG/1 ML DISP.SYRIN IV PRN (04:56)
[2016-02-23] MEDS: PIPERACILLIN /TAZOBACTAM 2.25 G in IV D5W 50 ML IV SCH ×3 (05:07→17:31)
[2016-02-23 05:13] LABS: CALCIUM, SERUM 7.7 mg/dL (8.5-10.1); CREATININE 1.1 mg/dL (0.6-1.3); PHOSPHORUS 3.2 mg/dL (2.5-4.9); POTASSIUM 3.2 mmol/L (3.5-5.1)
[2016-02-23 05:52] LABS: BAND % (MANUAL) 4 % (0.0-5.0); BASOPHILS % (MANUAL) 0 % (0.0-2.0); EOSINOPHILS % (MANUAL) 0 % (0-4); HYPOCHROMASIA 1+; LYMPHOCYTES % (MANUAL) 4 % (16-48); PLATELET ESTIMATE ADEQUATE
[2016-02-23 05:53] LABS: ANISOCYTOSIS 2+; TARGET CELLS 1+
[2016-02-23] MEDS: BLOOD SUGAR DIAGNOSTIC 1 EACH STRIP IN SCH ×4 (05:55→23:32)
[2016-02-23] MEDS: INSULIN REGULAR, HUMAN 100 UNIT/ML 3 ML VIAL SQ PRN ×3 (06:01→23:33)
[2016-02-23] MEDS ORDERED: TPN BAG #8 IV PRN ×7 (07:58)
[2016-02-23] MEDS ORDERED: TPN BAG #9 IV PRN ×9 (08:30)
[2016-02-23] MEDS: Z GUARD REMEDY 2 OZ OINT TP SCH ×2 (09:23→16:00)
[2016-02-23] MEDS: DAKINS QUARTER STRENGTH (0.125%) 480 ML BOTTLE TOP SCH ×2 (09:23→21:10)
[2016-02-23] MEDS ORDERED: IV SET PRIMARY PUMP SET 1 EA INFUS.SET MC ONE ×3 (11:21→20:07)
[2016-02-23] MEDS: PROPOFOL 100 ML IV PRN (11:28)
[2016-02-23] MEDS: IV NS 0.9% 250 ML IV PRN (12:17)
[2016-02-23] MEDS ORDERED: FILTER SET SAVER IV SET 1 EA INFUS.SET MC ONE (15:10)
[2016-02-23 15:23] LABS: IRON, SERUM 25 ug/dl (50-175); PERCENT SATURATION 26 % (14-33); TOTAL IRON BINDING CAPACITY 95 ug/dl (250-450)
[2016-02-23] MEDS ORDERED: SECONDARY IV SET 1 EA INFUS.SET MC ONE ×3 (18:02→23:21)
[2016-02-23] MEDS: MICAFUNGIN SODIUM 100 MG in IV NS 0.9% 100 ML IV SCH (18:05)
[2016-02-23] MEDS: PANTOPRAZOLE 40 MG VIAL IV SCH (20:18)
[2016-02-23] MEDS ORDERED: MEROPENEM 500 MG in IV NS 0.9% 50 ML IV SCH (21:00)
[2016-02-23] MEDS ORDERED: FEE PK DOSING 1 MIN EA MC ONE (21:30)
[2016-02-23] MEDS: MEROPENEM 1 G in IV NS 0.9% 100 ML IV SCH (21:40)
[2016-02-24] VITALS (52 sets, daily range): BP systolic 101–136; BP diastolic 51–77
[2016-02-24] MEDS ORDERED: VANCOMYCIN 1 GM in IV D5W 250 ML IV SCH ×2
[2016-02-24] MEDS: PROPOFOL 100 ML IV PRN (02:59)
[2016-02-24] MEDS ORDERED: IV NS 0.9% 500 ML IV ONE (03:04)
[2016-02-24 04:46] LABS: HEMATOCRIT 23 % (33-45); HEMOGLOBIN 7.6 g/dL (11.5-14.8); MEAN CORPUSCULAR HEMOGLOBIN 27 PG (26.0-33.0); MEAN CORPUSCULAR HGB CONC 33 g/dl (31.0-36.0); MEAN CORPUSCULAR VOLUME 82 fL (82-100); PLATELET COUNT (AUTO) 193 /CMM (150-450); RED BLOOD CELL COUNT(AUTO) 2.83 MIL/uL (4.0-5.2); WHITE BLOOD COUNT (AUTO) 22.5 K/uL (4.3-11.0)
[2016-02-24 04:56] LABS: CALCIUM, SERUM 7.3 mg/dL (8.5-10.1); CREATININE 1.1 mg/dL (0.6-1.3); PHOSPHORUS 2.9 mg/dL (2.5-4.9); POTASSIUM 3.6 mmol/L (3.5-5.1)
[2016-02-24] MEDS ORDERED: FILTER SET SAVER IV SET 1 EA INFUS.SET MC ONE ×2 (05:27→17:46)
[2016-02-24] MEDS ORDERED: IV SET PRIMARY PUMP SET 1 EA INFUS.SET MC ONE ×3 (05:27→17:45)
[2016-02-24] MEDS: INSULIN REGULAR, HUMAN 100 UNIT/ML 3 ML VIAL SQ PRN ×3 (05:48→17:54)
[2016-02-24] MEDS: BLOOD SUGAR DIAGNOSTIC 1 EACH STRIP IN SCH ×3 (05:50→17:50)
[2016-02-24 06:29] LABS: BAND % (MANUAL) 3 % (0.0-5.0); BASOPHILS % (MANUAL) 0 % (0.0-2.0); EOSINOPHILS % (MANUAL) 0 % (0-4); LYMPHOCYTES % (MANUAL) 3 % (16-48)
[2016-02-24 06:30] LABS: ANISOCYTOSIS 2+; HYPOCHROMASIA 1+; PLATELET ESTIMATE ADEQUATE
[2016-02-24 08:26] LABS: ABG BASE EXCESS -1.6 mmol/L; ABG HCO3 21.4 mmol/L; ABG PCO2 29.3 mmHg (35.0-45.0); ABG PH 7.482 (7.350-7.450); ABG PO2 98.4 mmHg (75.0-100.0); ALLEN TEST Pass; AaDO2 81.1 mmHg; O2Hb 94.6 % (94.0-97.0)
[2016-02-24] MEDS: MEROPENEM 1 G in IV NS 0.9% 100 ML IV SCH ×2 (09:34→22:35)
[2016-02-24] MEDS: DAKINS QUARTER STRENGTH (0.125%) 480 ML BOTTLE TOP SCH ×2 (09:35→20:06)
[2016-02-24] MEDS: Z GUARD REMEDY 2 OZ OINT TP SCH ×2 (09:35→17:50)
[2016-02-24] MEDS ORDERED: Magnesium 1GM/D5W 100ML PREMIX 1 G in PREMIX 1 EA IV SCH (10:30)
[2016-02-24] MEDS ORDERED: TPN BAG #11 IV PRN ×19 (11:00)
[2016-02-24] MEDS ORDERED: TPN BAG #10 IV PRN ×15 (11:00)
[2016-02-24] MEDS: Magnesium 1GM/D5W 100ML PREMIX 100 ML IV SCH ×2 (12:08→12:50)
[2016-02-24] MEDS: MICAFUNGIN SODIUM 100 MG in IV NS 0.9% 100 ML IV SCH (17:50)
[2016-02-24] MEDS: VANCOMYCIN 1.25 GM in IV D5W 500 ML IV SCH ×3 (18:43)
[2016-02-24] MEDS: PANTOPRAZOLE 40 MG VIAL IV SCH (20:06)
[2016-02-25] VITALS (58 sets, daily range): BP systolic 89–142; BP diastolic 50–95
[2016-02-25] MEDS: BLOOD SUGAR DIAGNOSTIC 1 EACH STRIP IN SCH ×4 (00:20→17:14)
[2016-02-25] MEDS: INSULIN REGULAR, HUMAN 100 UNIT/ML 3 ML VIAL SQ PRN ×2 (00:21→11:22)
[2016-02-25 05:41] LABS: HEMATOCRIT 23 % (33-45); HEMOGLOBIN 7.6 g/dL (11.5-14.8); MEAN CORPUSCULAR HEMOGLOBIN 28 PG (26.0-33.0); MEAN CORPUSCULAR HGB CONC 33 g/dl (31.0-36.0); MEAN CORPUSCULAR VOLUME 82 fL (82-100); PLATELET COUNT (AUTO) 205 /CMM (150-450); RED BLOOD CELL COUNT(AUTO) 2.78 MIL/uL (4.0-5.2); WHITE BLOOD COUNT (AUTO) 19.4 K/uL (4.3-11.0)
[2016-02-25 05:52] LABS: CALCIUM, SERUM 7.7 mg/dL (8.5-10.1); CREATININE 0.9 mg/dL (0.6-1.3); POTASSIUM 3.9 mmol/L (3.5-5.1)
[2016-02-25 06:07] LABS: PHOSPHORUS 2.8 mg/dL (2.5-4.9)
[2016-02-25] MEDS ORDERED: IV SET PRIMARY PUMP SET 1 EA INFUS.SET MC ONE (08:00)
[2016-02-25] MEDS ORDERED: FILTER SET SAVER IV SET 1 EA INFUS.SET MC ONE (08:01)
[2016-02-25] MEDS: Z GUARD REMEDY 2 OZ OINT TP SCH ×2 (08:25→17:09)
[2016-02-25] MEDS: DAKINS QUARTER STRENGTH (0.125%) 480 ML BOTTLE TOP SCH ×2 (08:25→20:38)
[2016-02-25] MEDS ORDERED: IV NS 0.9% 250 ML IV ONE (08:27)
[2016-02-25] MEDS: MEROPENEM 1 G in IV NS 0.9% 100 ML IV SCH ×2 (09:22→21:03)
[2016-02-25] MEDS ORDERED: TPN BAG #13 IV PRN ×10 (09:30)
[2016-02-25] MEDS ORDERED: TPN BAG #12 IV PRN ×8 (09:30)
[2016-02-25 10:05] LABS: ANISOCYTOSIS 1+; BAND % (MANUAL) 2 % (0.0-5.0); HYPOCHROMASIA 1+; LYMPHOCYTES % (MANUAL) 5 % (16-48); PLATELET ESTIMATE ADEQUATE
[2016-02-25] MEDS: HYDROMORPHONE 1 MG/1 ML DISP.SYRIN IV PRN ×4 (11:38→20:50)
[2016-02-25] MEDS: VANCOMYCIN 1.25 GM in IV D5W 500 ML IV SCH (12:03)
[2016-02-25] MEDS ORDERED: IV NS 0.9% 500 ML IV ONE (12:06)
[2016-02-25] MEDS: MICAFUNGIN SODIUM 100 MG in IV NS 0.9% 100 ML IV SCH (17:12)
[2016-02-25] MEDS: PANTOPRAZOLE 40 MG VIAL IV SCH (20:47)
[2016-02-26] VITALS (57 sets, daily range): BP systolic 98–172; BP diastolic 51–126
[2016-02-26] MEDS: BLOOD SUGAR DIAGNOSTIC 1 EACH STRIP IN SCH ×4 (00:45→17:20)
[2016-02-26] MEDS: HYDROMORPHONE 1 MG/1 ML DISP.SYRIN IV PRN (03:17)
[2016-02-26 05:06] LABS: CALCIUM, SERUM 7.8 mg/dL (8.5-10.1); CREATININE 0.8 mg/dL (0.6-1.3); POTASSIUM 4.6 mmol/L (3.5-5.1)
[2016-02-26] MEDS: VANCOMYCIN 1.25 GM in IV D5W 500 ML IV SCH ×3 (06:00→18:25)
[2016-02-26] MEDS: MEROPENEM 1 G in IV NS 0.9% 100 ML IV SCH ×2 (09:06→21:27)
[2016-02-26] MEDS: DAKINS QUARTER STRENGTH (0.125%) 480 ML BOTTLE TOP SCH ×2 (09:06→21:00)
[2016-02-26] MEDS: Z GUARD REMEDY 2 OZ OINT TP SCH ×2 (09:07→17:13)
[2016-02-26] MEDS ORDERED: IV SET PRIMARY PUMP SET 1 EA INFUS.SET MC ONE ×2 (09:07→12:08)
[2016-02-26 09:12] LABS: INR 0.97 (0.87-1.13); PROTHROMBIN TIME 10.5 SECS (9.5-12.7)
[2016-02-26 09:24] LABS: ABG BASE EXCESS -4.6 mmol/L; ABG HCO3 19.6 mmol/L; ABG PCO2 31.9 mmHg (35.0-45.0); ABG PH 7.406 (7.350-7.450); ABG PO2 106.9 mmHg (75.0-100.0); ABG TOTAL HEMOGLOBIN 7.6 G/dL (12.0-16.0); AaDO2 69.5 mmHg; O2Hb 94.3 % (94.0-97.0)
[2016-02-26 09:39] LABS: PHOSPHORUS 3.5 mg/dL (2.5-4.9)
[2016-02-26] MEDS ORDERED: TPN BAG #15 IV PRN ×9 (12:00)
[2016-02-26] MEDS ORDERED: TPN BAG #14 IV PRN ×7 (12:00)
[2016-02-26] MEDS ORDERED: IV FILTER 5 MICRON 1 EA INFUS.SET MC ONE (12:08)
[2016-02-26] MEDS ORDERED: ROCURONIUM BROMIDE 50 MG/5 ML ONE (12:25)
[2016-02-26] MEDS ORDERED: FENTANYL PF 100MCG/2ML AMPUL ONE (12:26)
[2016-02-26] MEDS: MICAFUNGIN SODIUM 100 MG in IV NS 0.9% 100 ML IV SCH (17:12)
[2016-02-26] MEDS: INSULIN REGULAR, HUMAN 100 UNIT/ML 3 ML VIAL SQ PRN (17:21)
[2016-02-26] MEDS: PANTOPRAZOLE 40 MG VIAL IV SCH (21:27)
[2016-02-27] VITALS (57 sets, daily range): BP systolic 102–183; BP diastolic 59–111
[2016-02-27] MEDS: BLOOD SUGAR DIAGNOSTIC 1 EACH STRIP IN SCH ×5 (00:41→23:57)
[2016-02-27] MEDS: INSULIN REGULAR, HUMAN 100 UNIT/ML 3 ML VIAL SQ PRN ×2 (00:45→17:57)
[2016-02-27 04:50] LABS: CALCIUM, SERUM 7.7 mg/dL (8.5-10.1); CREATININE 0.8 mg/dL (0.6-1.3); PHOSPHORUS 3.4 mg/dL (2.5-4.9); POTASSIUM 4.7 mmol/L (3.5-5.1)
[2016-02-27] MEDS ORDERED: IV SET PRIMARY PUMP SET 1 EA INFUS.SET MC ONE ×2 (04:52→17:05)
[2016-02-27] MEDS ORDERED: FILTER SET SAVER IV SET 1 EA INFUS.SET MC ONE ×2 (04:55→17:05)
[2016-02-27] MEDS: IV NS 0.9% 250 ML IV PRN (06:28)
[2016-02-27] MEDS: MEROPENEM 1 G in IV NS 0.9% 100 ML IV SCH ×2 (10:26→21:41)
[2016-02-27] MEDS: DAKINS QUARTER STRENGTH (0.125%) 480 ML BOTTLE TOP SCH ×2 (10:26→21:57)
[2016-02-27] MEDS: Z GUARD REMEDY 2 OZ OINT TP SCH ×2 (10:29→16:40)
[2016-02-27 10:46] LABS: ABG BASE EXCESS -4.9 mmol/L; ABG HCO3 17.8 mmol/L; ABG PCO2 24.8 mmHg (35.0-45.0); ABG PH 7.475 (7.350-7.450); ABG PO2 86.5 mmHg (75.0-100.0); ABG TOTAL HEMOGLOBIN 8.2 G/dL (12.0-16.0); ALLEN TEST Pass; AaDO2 98.3 mmHg; O2Hb 93.9 % (94.0-97.0)
[2016-02-27] MEDS: MICAFUNGIN SODIUM 100 MG in IV NS 0.9% 100 ML IV SCH (16:56)
[2016-02-27] MEDS ORDERED: SECONDARY IV SET 1 EA INFUS.SET MC ONE (16:57)
[2016-02-27] MEDS: VANCOMYCIN 1.25 GM in IV D5W 500 ML IV SCH (17:33)
[2016-02-27] MEDS: PANTOPRAZOLE 40 MG VIAL IV SCH (21:41)
[2016-02-27] MEDS: HYDROMORPHONE 1 MG/1 ML DISP.SYRIN IV PRN (21:43)
[2016-02-28] VITALS (35 sets, daily range): BP systolic 109–151; BP diastolic 44–89
[2016-02-28] MEDS: BLOOD SUGAR DIAGNOSTIC 1 EACH STRIP IN SCH ×3 (05:18→17:50)
[2016-02-28 05:30] LABS: BASOPHILS # (AUTO) 0.1 /CMM (0.0-0.2); DIFF TOTAL % 100 %; EOSINOPHILS # (AUTO) 0.4 /CMM (0.0-0.7); EOSINOPHILS % (AUTO) 3.3 % (0.0-6.0); HEMATOCRIT 22 % (33-45); HEMOGLOBIN 7.2 g/dL (11.5-14.8); LYMPHOCYTES # (AUTO) 0.8 /CMM (0.8-4.8); LYMPHOCYTES % (AUTO) 6.8 % (20.0-44.0); MEAN CORPUSCULAR HEMOGLOBIN 27 PG (26.0-33.0); MEAN CORPUSCULAR HGB CONC 33 g/dl (31.0-36.0); MEAN CORPUSCULAR VOLUME 84 fL (82-100); MONOCYTES # (AUTO) 0.7 /CMM (0.1-1.30); MONOCYTES % (AUTO) 6.1 % (2.0-12.0); NEUTROPHILS # (AUTO) 9.8 /CMM (1.8-8.9); NEUTROPHILS % (AUTO) 82.8 % (43.0-81.0); PLATELET COUNT (AUTO) 269 /CMM (150-450); RED BLOOD CELL COUNT(AUTO) 2.63 MIL/uL (4.0-5.2); WHITE BLOOD COUNT (AUTO) 11.9 K/uL (4.3-11.0)
[2016-02-28 05:35] LABS: BILIRUBIN,TOTAL 2.4 mg/dL (0.2-1.0); CALCIUM, SERUM 7.5 mg/dL (8.5-10.1); CREATININE 0.8 mg/dL (0.6-1.3); PHOSPHORUS 2.9 mg/dL (2.5-4.9); POTASSIUM 4.1 mmol/L (3.5-5.1)
[2016-02-28 05:55] LABS: ALBUMIN 0.9 g/dL (3.4-5.0)
[2016-02-28] MEDS: IV NS 0.9% 250 ML IV PRN (06:27)
[2016-02-28] MEDS ORDERED: TPN BAG #16 IV PRN ×16 (07:00)
[2016-02-28] MEDS ORDERED: ALBUMIN 25% 50 GM in PREMIX 1 EA IV ONE (08:00)
[2016-02-28] MEDS ORDERED: ALBUMIN 25% 25 GM in PREMIX 1 EA IV ONE (08:00)
[2016-02-28] MEDS ORDERED: IV SET PRIMARY PUMP SET 1 EA INFUS.SET MC ONE ×2 (08:46→09:55)
[2016-02-28] MEDS: MEROPENEM 1 G in IV NS 0.9% 100 ML IV SCH ×2 (09:12→22:28)
[2016-02-28] MEDS: DAKINS QUARTER STRENGTH (0.125%) 480 ML BOTTLE TOP SCH ×2 (09:13→22:28)
[2016-02-28] MEDS: Z GUARD REMEDY 2 OZ OINT TP SCH ×2 (09:13→17:50)
[2016-02-28] MEDS ORDERED: FILTER SET SAVER IV SET 1 EA INFUS.SET MC ONE ×2 (09:55→23:50)
[2016-02-28] MEDS: HYDROMORPHONE 1 MG/1 ML DISP.SYRIN IV PRN (11:08)
[2016-02-28] MEDS: MICAFUNGIN SODIUM 100 MG in IV NS 0.9% 100 ML IV SCH (17:49)
[2016-02-28] MEDS: VANCOMYCIN 1.25 GM in IV D5W 500 ML IV SCH (18:00)
[2016-02-28] MEDS: PANTOPRAZOLE 40 MG VIAL IV SCH (22:27)
[2016-02-29] VITALS (36 sets, daily range): BP systolic 99–168; BP diastolic 56–98
[2016-02-29] MEDS: BLOOD SUGAR DIAGNOSTIC 1 EACH STRIP IN SCH ×4 (01:51→17:38)
[2016-02-29] MEDS: DEXTROSE 50%-WATER 50 ML DISP.SYRIN IV PRN ×4 (04:49→13:31)
[2016-02-29] MEDS: INSULIN REGULAR, HUMAN 100 UNIT/ML 3 ML VIAL SQ PRN ×2 (04:51→06:59)
[2016-02-29 05:16] LABS: BASOPHILS # (AUTO) 0.1 /CMM (0.0-0.2); BASOPHILS % (AUTO) 0.8 % (0.0-2.0); DIFF TOTAL % 100 %; EOSINOPHILS # (AUTO) 0.4 /CMM (0.0-0.7); HEMATOCRIT 21 % (33-45); LYMPHOCYTES # (AUTO) 0.6 /CMM (0.8-4.8); LYMPHOCYTES % (AUTO) 7.2 % (20.0-44.0); MEAN CORPUSCULAR HEMOGLOBIN 28 PG (26.0-33.0); MEAN CORPUSCULAR HGB CONC 34 g/dl (31.0-36.0); MEAN CORPUSCULAR VOLUME 83 fL (82-100); MONOCYTES # (AUTO) 0.5 /CMM (0.1-1.30); MONOCYTES % (AUTO) 5.7 % (2.0-12.0); NEUTROPHILS # (AUTO) 7.4 /CMM (1.8-8.9); NEUTROPHILS % (AUTO) 82.3 % (43.0-81.0); PLATELET COUNT (AUTO) 267 /CMM (150-450); RED BLOOD CELL COUNT(AUTO) 2.53 MIL/uL (4.0-5.2)
[2016-02-29 05:33] LABS: CALCIUM, SERUM 7.5 mg/dL (8.5-10.1); CREATININE 0.7 mg/dL (0.6-1.3); PHOSPHORUS 2.2 mg/dL (2.5-4.9); POTASSIUM 3.3 mmol/L (3.5-5.1)
[2016-02-29 07:30] LABS: BASOPHILS % (AUTO) 0.5 % (0.0-2.0); DIFF TOTAL % 100 %; EOSINOPHILS # (AUTO) 0.3 /CMM (0.0-0.7); EOSINOPHILS % (AUTO) 3.4 % (0.0-6.0); HEMATOCRIT 23 % (33-45); HEMOGLOBIN 7.5 g/dL (11.5-14.8); LYMPHOCYTES # (AUTO) 0.9 /CMM (0.8-4.8); LYMPHOCYTES % (AUTO) 9.1 % (20.0-44.0); MEAN CORPUSCULAR HEMOGLOBIN 27 PG (26.0-33.0); MEAN CORPUSCULAR HGB CONC 33 g/dl (31.0-36.0); MEAN CORPUSCULAR VOLUME 83 fL (82-100); MONOCYTES # (AUTO) 0.6 /CMM (0.1-1.30); NEUTROPHILS # (AUTO) 8.1 /CMM (1.8-8.9); PLATELET COUNT (AUTO) 250 /CMM (150-450); RED BLOOD CELL COUNT(AUTO) 2.78 MIL/uL (4.0-5.2)
[2016-02-29 07:40] LABS: CREATININE 0.7 mg/dL (0.6-1.3); POTASSIUM 3.6 mmol/L (3.5-5.1)
[2016-02-29] MEDS: DAKINS QUARTER STRENGTH (0.125%) 480 ML BOTTLE TOP SCH (07:48)
[2016-02-29] MEDS: Z GUARD REMEDY 2 OZ OINT TP SCH ×2 (07:49→17:39)
[2016-02-29] MEDS: MEROPENEM 1 G in IV NS 0.9% 100 ML IV SCH ×2 (10:10→22:21)
[2016-02-29] MEDS ORDERED: FAT EMULSION 20% 500 ML in PREMIX 1 EA IV PRN (12:00)
[2016-02-29] MEDS ORDERED: FILTER SET SAVER IV SET 1 EA INFUS.SET MC ONE (13:33)
[2016-02-29] MEDS ORDERED: IV SET PRIMARY PUMP SET 1 EA INFUS.SET MC ONE ×2 (13:33→16:56)
[2016-02-29] MEDS ORDERED: TPN IV PRN ×19 (14:00)
[2016-02-29] MEDS: MICAFUNGIN SODIUM 100 MG in IV NS 0.9% 100 ML IV SCH (17:38)
[2016-02-29] MEDS ORDERED: SECONDARY IV SET 1 EA INFUS.SET MC ONE (18:51)
[2016-02-29] MEDS: VANCOMYCIN 1 GM in IV D5W 250 ML IV SCH (19:10)
[2016-02-29] MEDS ORDERED: IV NS 0.9% 1,000 ML ONE (19:46)
[2016-02-29] MEDS: PANTOPRAZOLE 40 MG VIAL IV SCH (20:42)
[2016-03-01] VITALS (44 sets, daily range): BP systolic 108–168; BP diastolic 33–100
[2016-03-01] MEDS ORDERED: TPN IV PRN ×7 (03:00)
[2016-03-01] MEDS ORDERED: FILTER SET SAVER IV SET 1 EA INFUS.SET MC ONE ×2 (04:57→16:33)
[2016-03-01] MEDS ORDERED: IV SET PRIMARY PUMP SET 1 EA INFUS.SET MC ONE ×3 (04:57→16:45)
[2016-03-01 04:59] LABS: BASOPHILS # (AUTO) 0.1 /CMM (0.0-0.2); BASOPHILS % (AUTO) 1.4 % (0.0-2.0); DIFF TOTAL % 100 %; EOSINOPHILS # (AUTO) 0.5 /CMM (0.0-0.7); EOSINOPHILS % (AUTO) 5.1 % (0.0-6.0); HEMATOCRIT 22 % (33-45); HEMOGLOBIN 7.4 g/dL (11.5-14.8); LYMPHOCYTES # (AUTO) 0.9 /CMM (0.8-4.8); LYMPHOCYTES % (AUTO) 8.9 % (20.0-44.0); MEAN CORPUSCULAR HEMOGLOBIN 28 PG (26.0-33.0); MEAN CORPUSCULAR HGB CONC 34 g/dl (31.0-36.0); MEAN CORPUSCULAR VOLUME 84 fL (82-100); MONOCYTES # (AUTO) 0.6 /CMM (0.1-1.30); MONOCYTES % (AUTO) 6.1 % (2.0-12.0); NEUTROPHILS # (AUTO) 7.8 /CMM (1.8-8.9); NEUTROPHILS % (AUTO) 78.5 % (43.0-81.0); PLATELET COUNT (AUTO) 297 /CMM (150-450); RED BLOOD CELL COUNT(AUTO) 2.63 MIL/uL (4.0-5.2); WHITE BLOOD COUNT (AUTO) 9.9 K/uL (4.3-11.0)
[2016-03-01 05:13] LABS: CALCIUM, SERUM 7.3 mg/dL (8.5-10.1); CREATININE 0.8 mg/dL (0.6-1.3); PHOSPHORUS 2.8 mg/dL (2.5-4.9); POTASSIUM 3.7 mmol/L (3.5-5.1)
[2016-03-01 05:46] LABS: BAND % (MANUAL) 2 % (0.0-5.0); EOSINOPHILS % (MANUAL) 7 % (0-4); LYMPHOCYTES % (MANUAL) 5 % (16-48)
[2016-03-01 05:47] LABS: ANISOCYTOSIS 1+; PLATELET ESTIMATE ADEQUATE
[2016-03-01] MEDS: BLOOD SUGAR DIAGNOSTIC 1 EACH STRIP IN SCH ×5 (06:00→23:43)
[2016-03-01 06:30] LABS: INR 1.01 (0.87-1.13); PROTHROMBIN TIME 10.9 SECS (9.5-12.7)
[2016-03-01] MEDS: MEROPENEM 1 G in IV NS 0.9% 100 ML IV SCH ×2 (09:18→21:43)
[2016-03-01] MEDS: Z GUARD REMEDY 2 OZ OINT TP SCH ×2 (09:19→17:11)
[2016-03-01] MEDS: DAKINS QUARTER STRENGTH (0.125%) 480 ML BOTTLE TOP SCH (09:19)
[2016-03-01] MEDS ORDERED: FAT EMULSION 20% 500 ML in PREMIX 1 EA IV SCH (10:07)
[2016-03-01] MEDS ORDERED: TPN BAG #21 IV PRN ×8 (10:30)
[2016-03-01] MEDS ORDERED: [UNRECOGNIZED DRUG - CODE] IV PRN ×6 (10:30)
[2016-03-01] MEDS: INSULIN REGULAR, HUMAN 100 UNIT/ML 3 ML VIAL SQ PRN (11:56)
[2016-03-01] MEDS ORDERED: BLOOD IV SET 1 EA INFUS.SET MC ONE (12:15)
[2016-03-01] MEDS ORDERED: IV NS 0.9% 100 ML IV ONE (12:16)
[2016-03-01] MEDS ORDERED: IV FILTER 5 MICRON 1 EA INFUS.SET MC ONE (16:34)
[2016-03-01] MEDS: MICAFUNGIN SODIUM 100 MG in IV NS 0.9% 100 ML IV SCH (17:10)
[2016-03-01] MEDS ORDERED: LIDOCAINE 1%-EPI 1:100,000 20 ML VIAL ONE (17:17)
[2016-03-01] MEDS ORDERED: ATRACURIUM 100MG/10 ML MDV IV ONE (18:29)
[2016-03-01] MEDS ORDERED: FENTANYL PF 100MCG/2ML AMPUL ONE (18:29)
[2016-03-01] MEDS ORDERED: SECONDARY IV SET 1 EA INFUS.SET MC ONE (18:31)
[2016-03-01] MEDS: VANCOMYCIN 1 GM in IV D5W 250 ML IV SCH (19:10)
[2016-03-01] MEDS ORDERED: ANESTHESIA TRAY IN PYXIS 1 EA TRAY MC ONE (19:16)
[2016-03-01] MEDS: IV NS 0.9% 250 ML IV PRN (20:03)
[2016-03-01] MEDS: HYDROMORPHONE 1 MG/1 ML DISP.SYRIN IV PRN ×2 (20:04→23:14)
[2016-03-01] MEDS: PANTOPRAZOLE 40 MG VIAL IV SCH (20:18)
[2016-03-02] VITALS (27 sets, daily range): BP systolic 115–151; BP diastolic 63–84
[2016-03-02] MEDS: INSULIN REGULAR, HUMAN 100 UNIT/ML 3 ML VIAL SQ PRN (00:33)
[2016-03-02] MEDS: HYDROMORPHONE 1 MG/1 ML DISP.SYRIN IV PRN ×2 (02:58→20:33)
[2016-03-02 04:52] LABS: BASOPHILS % (AUTO) 0.2 % (0.0-2.0); DIFF TOTAL % 100 %; EOSINOPHILS # (AUTO) 0.5 /CMM (0.0-0.7); EOSINOPHILS % (AUTO) 4.9 % (0.0-6.0); HEMATOCRIT 30 % (33-45); LYMPHOCYTES # (AUTO) 0.9 /CMM (0.8-4.8); LYMPHOCYTES % (AUTO) 8.6 % (20.0-44.0); MEAN CORPUSCULAR HEMOGLOBIN 29 PG (26.0-33.0); MEAN CORPUSCULAR HGB CONC 33 g/dl (31.0-36.0); MEAN CORPUSCULAR VOLUME 87 fL (82-100); MONOCYTES # (AUTO) 0.8 /CMM (0.1-1.30); MONOCYTES % (AUTO) 7.2 % (2.0-12.0); NEUTROPHILS # (AUTO) 8.7 /CMM (1.8-8.9); NEUTROPHILS % (AUTO) 79.1 % (43.0-81.0); PLATELET COUNT (AUTO) 283 /CMM (150-450); RED BLOOD CELL COUNT(AUTO) 3.46 MIL/uL (4.0-5.2)
[2016-03-02 05:09] LABS: CALCIUM, SERUM 7.4 mg/dL (8.5-10.1); CREATININE 0.7 mg/dL (0.6-1.3); PHOSPHORUS 3.4 mg/dL (2.5-4.9)
[2016-03-02] MEDS: BLOOD SUGAR DIAGNOSTIC 1 EACH STRIP IN SCH ×3 (06:36→17:29)
[2016-03-02] MEDS ORDERED: TPN BAG #22 IV PRN ×6 (07:30)
[2016-03-02] MEDS ORDERED: TPN BAG #23 IV PRN ×8 (07:30)
[2016-03-02] MEDS ORDERED: IV SET PRIMARY PUMP SET 1 EA INFUS.SET MC ONE ×2 (09:17→22:08)
[2016-03-02] MEDS ORDERED: FILTER SET SAVER IV SET 1 EA INFUS.SET MC ONE (09:17)
[2016-03-02] MEDS: MEROPENEM 1 G in IV NS 0.9% 100 ML IV SCH ×2 (09:34→21:31)
[2016-03-02] MEDS: Z GUARD REMEDY 2 OZ OINT TP SCH ×2 (09:35→16:29)
[2016-03-02] MEDS: DAKINS QUARTER STRENGTH (0.125%) 480 ML BOTTLE TOP SCH (09:35)
[2016-03-02] MEDS ORDERED: FAT EMULSION 20% 500 ML in PREMIX 1 EA IV SCH (12:00)
[2016-03-02] MEDS: GLYTROL 1,000 ML BAG GT PRN (14:40)
[2016-03-02] MEDS: MICAFUNGIN SODIUM 100 MG in IV NS 0.9% 100 ML IV SCH (17:30)
[2016-03-02] MEDS ORDERED: SECONDARY IV SET 1 EA INFUS.SET MC ONE (17:31)
[2016-03-02] MEDS: VANCOMYCIN 1 GM in IV D5W 250 ML IV SCH (18:39)
[2016-03-02] MEDS: ONDANSETRON HCL/PF 4 MG/2 ML VIAL IV PRN (20:31)
[2016-03-02] MEDS: PANTOPRAZOLE 40 MG VIAL IV SCH (20:36)
[2016-03-03] VITALS: BP 127/67
[2016-03-03] MEDS: BLOOD SUGAR DIAGNOSTIC 1 EACH STRIP IN SCH ×5 (00:47→23:25)
[2016-03-03] MEDS: INSULIN REGULAR, HUMAN 100 UNIT/ML 3 ML VIAL SQ PRN ×3 (01:03→23:27)
[2016-03-03] MEDS: IV NS 0.9% 250 ML IV PRN (01:07)
[2016-03-03 04:00] VITALS: BP 148/67
[2016-03-03 08:00] VITALS: BP 157/72
[2016-03-03] MEDS: DAKINS QUARTER STRENGTH (0.125%) 480 ML BOTTLE TOP SCH (08:38)
[2016-03-03] MEDS: Z GUARD REMEDY 2 OZ OINT TP SCH ×2 (08:39→17:05)
[2016-03-03 09:02] LABS: CALCIUM, SERUM 7.3 mg/dL (8.5-10.1); CREATININE 0.7 mg/dL (0.6-1.3); PHOSPHORUS 2.6 mg/dL (2.5-4.9); POTASSIUM 4.1 mmol/L (3.5-5.1)
[2016-03-03] MEDS: MEROPENEM 1 G in IV NS 0.9% 100 ML IV SCH ×2 (09:05→23:25)
[2016-03-03] MEDS ORDERED: TPN BAG #24 IV PRN ×7 (09:30)
[2016-03-03] MEDS ORDERED: TPN BAG #25 IV PRN ×9 (09:30)
[2016-03-03] MEDS ORDERED: FILTER SET SAVER IV SET 1 EA INFUS.SET MC ONE (11:43)
[2016-03-03] MEDS ORDERED: IV SET PRIMARY PUMP SET 1 EA INFUS.SET MC ONE (11:44)
[2016-03-03 12:00] VITALS: BP 120/70
[2016-03-03 16:00] VITALS: BP 118/65
[2016-03-03] MEDS: MICAFUNGIN SODIUM 100 MG in IV NS 0.9% 100 ML IV SCH (17:05)
[2016-03-03] MEDS: GLYTROL 1,000 ML BAG GT PRN (17:06)
[2016-03-03 20:00] VITALS: BP 151/73
[2016-03-03] MEDS: PANTOPRAZOLE 40 MG VIAL IV SCH (20:51)
[2016-03-04] VITALS: BP 145/73
[2016-03-04] MEDS: HYDROMORPHONE 1 MG/1 ML DISP.SYRIN IV PRN ×2 (01:57→22:08)
[2016-03-04 04:00] VITALS: BP 124/83
[2016-03-04] MEDS ORDERED: IV SET PRIMARY PUMP SET 1 EA INFUS.SET MC ONE ×3 (04:34→16:25)
[2016-03-04] MEDS: BLOOD SUGAR DIAGNOSTIC 1 EACH STRIP IN SCH ×3 (05:25→17:27)
[2016-03-04] MEDS: IV NS 0.9% 250 ML IV PRN (05:36)
[2016-03-04] MEDS ORDERED: FILTER SET SAVER IV SET 1 EA INFUS.SET MC ONE ×2 (06:25→16:25)
[2016-03-04 07:28] LABS: CALCIUM, SERUM 7.4 mg/dL (8.5-10.1); CREATININE 0.7 mg/dL (0.6-1.3); PHOSPHORUS 2.4 mg/dL (2.5-4.9); POTASSIUM 4.1 mmol/L (3.5-5.1)
[2016-03-04 08:00] VITALS: BP 124/70
[2016-03-04] MEDS ORDERED: TPN BAG #25 IV PRN ×9 (08:11)
[2016-03-04] MEDS: DAKINS QUARTER STRENGTH (0.125%) 480 ML BOTTLE TOP SCH (08:26)
[2016-03-04] MEDS: Z GUARD REMEDY 2 OZ OINT TP SCH ×2 (08:28→16:35)
[2016-03-04] MEDS ORDERED: TPN BAG #26 IV PRN ×7 (08:30)
[2016-03-04] MEDS ORDERED: TPN BAG #27 IV PRN ×9 (08:30)
[2016-03-04] MEDS: MEROPENEM 1 G in IV NS 0.9% 100 ML IV SCH ×2 (09:21→22:06)
[2016-03-04 12:00] VITALS: BP 130/70
[2016-03-04 16:00] VITALS: BP 115/66
[2016-03-04] MEDS: MICAFUNGIN SODIUM 100 MG in IV NS 0.9% 100 ML IV SCH (17:28)
[2016-03-04 20:00] VITALS: BP 121/71
[2016-03-04] MEDS: PANTOPRAZOLE 40 MG VIAL IV SCH (20:37)
[2016-03-04] MEDS ORDERED: SECONDARY IV SET 1 EA INFUS.SET MC ONE (21:43)
[2016-03-04] MEDS: GLYTROL 1,000 ML BAG GT PRN (22:06)
[2016-03-05] VITALS: BP 132/79
[2016-03-05] MEDS ORDERED: IV SET PRIMARY PUMP SET 1 EA INFUS.SET MC ONE (00:29)
[2016-03-05] MEDS ORDERED: FILTER SET SAVER IV SET 1 EA INFUS.SET MC ONE (00:29)
[2016-03-05] MEDS: BLOOD SUGAR DIAGNOSTIC 1 EACH STRIP IN SCH ×4 (00:30→18:13)
[2016-03-05] MEDS: INSULIN REGULAR, HUMAN 100 UNIT/ML 3 ML VIAL SQ PRN ×2 (00:44→12:33)
[2016-03-05] MEDS: HYDROMORPHONE 1 MG/1 ML DISP.SYRIN IV PRN ×2 (03:54→21:48)
[2016-03-05 04:00] VITALS: BP 134/74
[2016-03-05] MEDS ORDERED: IV NS 0.9% 250 ML IV ONE (04:44)
[2016-03-05 08:00] VITALS: BP 134/77
[2016-03-05 09:00] LABS: CALCIUM, SERUM 6.7 mg/dL (8.5-10.1); CREATININE 0.8 mg/dL (0.6-1.3); PHOSPHORUS 3.9 mg/dL (2.5-4.9)
[2016-03-05] MEDS: DAKINS QUARTER STRENGTH (0.125%) 480 ML BOTTLE TOP SCH (09:21)
[2016-03-05] MEDS: Z GUARD REMEDY 2 OZ OINT TP SCH ×2 (09:21→17:57)
[2016-03-05] MEDS: MEROPENEM 1 G in IV NS 0.9% 100 ML IV SCH ×2 (09:21→21:29)
[2016-03-05 10:26] LABS: CALCIUM, SERUM 7.3 mg/dL (8.5-10.1); CREATININE 0.8 mg/dL (0.6-1.3); POTASSIUM 4.4 mmol/L (3.5-5.1)
[2016-03-05 10:29] LABS: PHOSPHORUS 2.2 mg/dL (2.5-4.9)
[2016-03-05 12:00] VITALS: BP 130/75
[2016-03-05 16:00] VITALS: BP 111/80
[2016-03-05] MEDS ORDERED: NEUTRA PHOS 1 POWD.PACKET GT ONE (16:00)
[2016-03-05] MEDS: GLYTROL 1,000 ML BAG GT PRN (17:56)
[2016-03-05] MEDS: MICAFUNGIN SODIUM 100 MG in IV NS 0.9% 100 ML IV SCH (17:57)
[2016-03-05 20:00] VITALS: BP 102/75
[2016-03-05] MEDS: PANTOPRAZOLE 40 MG VIAL IV SCH (21:30)
[2016-03-06] VITALS: BP 124/59
[2016-03-06] MEDS: BLOOD SUGAR DIAGNOSTIC 1 EACH STRIP IN SCH ×4 (00:23→17:27)
[2016-03-06] MEDS: INSULIN REGULAR, HUMAN 100 UNIT/ML 3 ML VIAL SQ PRN (00:25)
[2016-03-06 04:00] VITALS: BP 90/60
[2016-03-06 07:41] LABS: BASOPHILS % (AUTO) 0.3 % (0.0-2.0); DIFF TOTAL % 100 %; EOSINOPHILS # (AUTO) 0.5 /CMM (0.0-0.7); EOSINOPHILS % (AUTO) 3.3 % (0.0-6.0); HEMATOCRIT 29 % (33-45); HEMOGLOBIN 9.6 g/dL (11.5-14.8); LYMPHOCYTES # (AUTO) 1.3 /CMM (0.8-4.8); LYMPHOCYTES % (AUTO) 8.2 % (20.0-44.0); MEAN CORPUSCULAR HEMOGLOBIN 29 PG (26.0-33.0); MEAN CORPUSCULAR HGB CONC 34 g/dl (31.0-36.0); MEAN CORPUSCULAR VOLUME 86 fL (82-100); MONOCYTES # (AUTO) 0.7 /CMM (0.1-1.30); MONOCYTES % (AUTO) 4.4 % (2.0-12.0); NEUTROPHILS # (AUTO) 13.1 /CMM (1.8-8.9); NEUTROPHILS % (AUTO) 83.8 % (43.0-81.0); PLATELET COUNT (AUTO) 334 /CMM (150-450); RED BLOOD CELL COUNT(AUTO) 3.32 MIL/uL (4.0-5.2); WHITE BLOOD COUNT (AUTO) 15.6 K/uL (4.3-11.0)
[2016-03-06 08:00] VITALS: BP 111/64
[2016-03-06 08:12] LABS: CALCIUM, SERUM 7.4 mg/dL (8.5-10.1); CREATININE 0.7 mg/dL (0.6-1.3); PHOSPHORUS 2.4 mg/dL (2.5-4.9); POTASSIUM 4.4 mmol/L (3.5-5.1)
[2016-03-06 09:10] LABS: ABG BASE EXCESS 6.1 mmol/L; ABG HCO3 29.6 mmol/L; ABG PCO2 38.5 mmHg (35.0-45.0); ABG PH 7.504 (7.350-7.450); ABG PO2 89.6 mmHg (75.0-100.0); ALLEN TEST Pass; AaDO2 79.1 mmHg; O2Hb 95.1 % (94.0-97.0)
[2016-03-06] MEDS: DAKINS QUARTER STRENGTH (0.125%) 480 ML BOTTLE TOP SCH (09:17)
[2016-03-06] MEDS: Z GUARD REMEDY 2 OZ OINT TP SCH ×2 (09:18→17:24)
[2016-03-06] MEDS: MEROPENEM 1 G in IV NS 0.9% 100 ML IV SCH ×2 (09:18→20:56)
[2016-03-06] MEDS: GLYTROL 1,000 ML BAG GT PRN (09:26)
[2016-03-06 12:00] VITALS: BP 81/66
[2016-03-06] MEDS ORDERED: NEUTRA PHOS 1 POWD.PACKET PO ONE (15:30)
[2016-03-06 16:00] VITALS: BP 128/56
[2016-03-06] MEDS: MICAFUNGIN SODIUM 100 MG in IV NS 0.9% 100 ML IV SCH (17:24)
[2016-03-06] MEDS: HYDROMORPHONE 1 MG/1 ML DISP.SYRIN IV PRN (17:59)
[2016-03-06 20:00] VITALS: BP 136/55
[2016-03-06] MEDS: PANTOPRAZOLE 40 MG VIAL IV SCH (20:56)
[2016-03-07] VITALS: BP 136/55
[2016-03-07] MEDS: BLOOD SUGAR DIAGNOSTIC 1 EACH STRIP IN SCH ×4 (01:40→17:37)
[2016-03-07 04:00] VITALS: BP 123/98
[2016-03-07] MEDS: HYDROMORPHONE 1 MG/1 ML DISP.SYRIN IV PRN (06:22)
[2016-03-07 08:00] VITALS: BP 110/68
[2016-03-07] MEDS: DAKINS QUARTER STRENGTH (0.125%) 480 ML BOTTLE TOP SCH (09:02)
[2016-03-07] MEDS: MEROPENEM 1 G in IV NS 0.9% 100 ML IV SCH ×2 (09:02→22:19)
[2016-03-07] MEDS: Z GUARD REMEDY 2 OZ OINT TP SCH ×2 (09:02→17:37)
[2016-03-07] MEDS: IV NS 0.9% 250 ML IV PRN (09:07)
[2016-03-07 10:24] LABS: BASOPHILS % (AUTO) 0.1 % (0.0-2.0); DIFF TOTAL % 100 %; EOSINOPHILS # (AUTO) 0.2 /CMM (0.0-0.7); HEMATOCRIT 29 % (33-45); HEMOGLOBIN 9.6 g/dL (11.5-14.8); LYMPHOCYTES # (AUTO) 1.2 /CMM (0.8-4.8); LYMPHOCYTES % (AUTO) 5.7 % (20.0-44.0); MEAN CORPUSCULAR HEMOGLOBIN 29 PG (26.0-33.0); MEAN CORPUSCULAR HGB CONC 33 g/dl (31.0-36.0); MEAN CORPUSCULAR VOLUME 86 fL (82-100); MONOCYTES # (AUTO) 0.5 /CMM (0.1-1.30); MONOCYTES % (AUTO) 2.5 % (2.0-12.0); NEUTROPHILS # (AUTO) 19.6 /CMM (1.8-8.9); NEUTROPHILS % (AUTO) 90.7 % (43.0-81.0); PLATELET COUNT (AUTO) 362 /CMM (150-450); RED BLOOD CELL COUNT(AUTO) 3.35 MIL/uL (4.0-5.2); WHITE BLOOD COUNT (AUTO) 21.6 K/uL (4.3-11.0)
[2016-03-07 10:46] LABS: CALCIUM, SERUM 7.5 mg/dL (8.5-10.1); CREATININE 0.7 mg/dL (0.6-1.3); PHOSPHORUS 2.9 mg/dL (2.5-4.9)
[2016-03-07 11:28] LABS: BAND % (MANUAL) 5 % (0.0-5.0); EOSINOPHILS % (MANUAL) 2 % (0-4); LYMPHOCYTES % (MANUAL) 4 % (16-48); METAMYELOCYTES % 1 % (0-0)
[2016-03-07 11:29] LABS: PLATELET ESTIMATE ADEQUATE
[2016-03-07 12:00] VITALS: BP 118/52
[2016-03-07] MEDS: INSULIN REGULAR, HUMAN 100 UNIT/ML 3 ML VIAL SQ PRN (12:36)
[2016-03-07 16:00] VITALS: BP 123/75
[2016-03-07] MEDS: MICAFUNGIN SODIUM 100 MG in IV NS 0.9% 100 ML IV SCH (17:37)
[2016-03-07] MEDS ORDERED: SECONDARY IV SET 1 EA INFUS.SET MC ONE ×3 (17:38→23:44)
[2016-03-07 20:00] VITALS: BP 150/74
[2016-03-07] MEDS: PANTOPRAZOLE 40 MG VIAL IV SCH (20:55)
[2016-03-07] MEDS ORDERED: VANCOMYCIN 1 GM VIAL ONE (23:05)
[2016-03-07] MEDS ORDERED: IV D5W 250 ML IV ONE (23:05)
[2016-03-07] MEDS ORDERED: IV NS 0.9% 250 ML IV ONE (23:34)
[2016-03-08] VITALS: BP 148/65
[2016-03-08] MEDS ORDERED: VANCOMYCIN 1 GM in IV D5W 250 ML IV ONE ×2
[2016-03-08] MEDS: INSULIN REGULAR, HUMAN 100 UNIT/ML 3 ML VIAL SQ PRN ×4 (00:08→23:35)
[2016-03-08] MEDS: GLYTROL 1,000 ML BAG GT PRN (02:49)
[2016-03-08 04:00] VITALS: BP 134/69
[2016-03-08] MEDS: BLOOD SUGAR DIAGNOSTIC 1 EACH STRIP IN SCH ×5 (05:57→23:34)
[2016-03-08 07:48] LABS: KETONES,URINE NEGATIVE (NEGATIVE); LEUKOCYTE ESTERASE ,URINE NEGATIVE (NEGATIVE)
[2016-03-08 07:49] LABS: ADD UA MICROSCOPIC YES
[2016-03-08 07:57] LABS: ADD URINE CULTURE NO; MUCUS,URINE Few /LPF (None Seen); WBC,URINE 0-2 /HPF (0-3)
[2016-03-08 08:00] VITALS: BP 143/64
[2016-03-08] MEDS ORDERED: FEE PK DOSING 1 MIN EA MC ONE ×2 (08:25→17:57)
[2016-03-08] MEDS: DAKINS QUARTER STRENGTH (0.125%) 480 ML BOTTLE TOP SCH (08:56)
[2016-03-08] MEDS: Z GUARD REMEDY 2 OZ OINT TP SCH ×2 (08:59→17:26)
[2016-03-08] MEDS: MEROPENEM 1 G in IV NS 0.9% 100 ML IV SCH (09:01)
[2016-03-08 12:00] VITALS: BP 116/54
[2016-03-08] MEDS ORDERED: VANCOMYCIN 0.75 GM in IV D5W 250 ML IV SCH (12:00)
[2016-03-08] MEDS: METOPROLOL TARTRATE 25 MG TABLET PO SCH ×2 (12:18→21:08)
[2016-03-08] MEDS ORDERED: DIATR MEGLU/DIATRIZOATE SODIUM 30 ML BOTTLE (GASTROGRAPHIN) ONE (15:42)
[2016-03-08 16:00] VITALS: BP 121/66
[2016-03-08] MEDS: HYDROMORPHONE 1 MG/1 ML DISP.SYRIN IV PRN (16:16)
[2016-03-08 20:00] VITALS: BP 133/78
[2016-03-08] MEDS: PANTOPRAZOLE 40 MG VIAL IV SCH (21:07)
[2016-03-08] MEDS: VANCOMYCIN 0.75 GM in IV D5W 250 ML IV SCH (21:07)
[2016-03-08] MEDS: MEROPENEM 500 MG in IV NS 0.9% 50 ML IV SCH (22:02)
[2016-03-09] VITALS: BP 124/74
[2016-03-09] MEDS: IV NS 0.9% 250 ML IV PRN ×2 (03:04→16:07)
[2016-03-09 04:00] VITALS: BP 119/67
[2016-03-09] MEDS: BLOOD SUGAR DIAGNOSTIC 1 EACH STRIP IN SCH ×3 (05:29→17:11)
[2016-03-09] MEDS: INSULIN REGULAR, HUMAN 100 UNIT/ML 3 ML VIAL SQ PRN (05:29)
[2016-03-09] MEDS: MEROPENEM 500 MG in IV NS 0.9% 50 ML IV SCH ×3 (05:49→20:42)
[2016-03-09 07:06] LABS: BASOPHILS % (AUTO) 0.1 % (0.0-2.0); DIFF TOTAL % 100 %; EOSINOPHILS # (AUTO) 0.4 /CMM (0.0-0.7); EOSINOPHILS % (AUTO) 2.7 % (0.0-6.0); HEMATOCRIT 27 % (33-45); HEMOGLOBIN 9.1 g/dL (11.5-14.8); LYMPHOCYTES # (AUTO) 1.1 /CMM (0.8-4.8); LYMPHOCYTES % (AUTO) 6.8 % (20.0-44.0); MEAN CORPUSCULAR HEMOGLOBIN 29 PG (26.0-33.0); MEAN CORPUSCULAR HGB CONC 34 g/dl (31.0-36.0); MEAN CORPUSCULAR VOLUME 87 fL (82-100); MONOCYTES # (AUTO) 0.5 /CMM (0.1-1.30); MONOCYTES % (AUTO) 3.1 % (2.0-12.0); NEUTROPHILS % (AUTO) 87.3 % (43.0-81.0); PLATELET COUNT (AUTO) 328 /CMM (150-450); RED BLOOD CELL COUNT(AUTO) 3.12 MIL/uL (4.0-5.2)
[2016-03-09 07:07] LABS: CALCIUM, SERUM 7.5 mg/dL (8.5-10.1); CREATININE 0.7 mg/dL (0.6-1.3); POTASSIUM 4.5 mmol/L (3.5-5.1)
[2016-03-09 07:33] LABS: INR 1.14 (0.87-1.13); PROTHROMBIN TIME 12.3 SECS (9.5-12.7)
[2016-03-09 08:00] VITALS: BP 136/74
[2016-03-09] MEDS: DAKINS QUARTER STRENGTH (0.125%) 480 ML BOTTLE TOP SCH (08:36)
[2016-03-09] MEDS: METOPROLOL TARTRATE 25 MG TABLET PO SCH ×3 (08:37→21:00)
[2016-03-09] MEDS: VANCOMYCIN 0.75 GM in IV D5W 250 ML IV SCH ×2 (08:37→20:42)
[2016-03-09] MEDS: Z GUARD REMEDY 2 OZ OINT TP SCH ×2 (08:39→16:03)
[2016-03-09] MEDS: HYDROMORPHONE 1 MG/1 ML DISP.SYRIN IV PRN (08:51)
[2016-03-09] MEDS ORDERED: ROCURONIUM BROMIDE 50 MG/5 ML ONE (09:47)
[2016-03-09 11:54] LABS: BAND % (MANUAL) 3 % (0.0-5.0); EOSINOPHILS % (MANUAL) 1 % (0-4); LYMPHOCYTES % (MANUAL) 6 % (16-48); METAMYELOCYTES % 1 % (0-0); PLATELET ESTIMATE ADEQUATE
[2016-03-09 11:55] LABS: ANISOCYTOSIS 2+; HYPOCHROMASIA 1+
[2016-03-09 12:00] VITALS: BP 131/70
[2016-03-09 16:00] VITALS: BP 121/84
[2016-03-09] MEDS: GLYTROL 1,000 ML BAG GT PRN (16:07)
[2016-03-09 20:00] VITALS: BP 122/70
[2016-03-09] MEDS: PANTOPRAZOLE 40 MG VIAL IV SCH (20:42)
[2016-03-10] VITALS (7 sets, daily range): BP systolic 107–160; BP diastolic 52–90
[2016-03-10] MEDS: HYDROMORPHONE 1 MG/1 ML DISP.SYRIN IV PRN ×2 (00:22→12:15)
[2016-03-10] MEDS: BLOOD SUGAR DIAGNOSTIC 1 EACH STRIP IN SCH ×5 (00:45→23:51)
[2016-03-10] MEDS: MEROPENEM 500 MG in IV NS 0.9% 50 ML IV SCH ×3 (06:24→21:29)
[2016-03-10 07:58] LABS: CALCIUM, SERUM 7.6 mg/dL (8.5-10.1); CREATININE 0.8 mg/dL (0.6-1.3); POTASSIUM 4.2 mmol/L (3.5-5.1)
[2016-03-10] MEDS: VANCOMYCIN 0.75 GM in IV D5W 250 ML IV SCH (08:00)
[2016-03-10] MEDS: METOPROLOL TARTRATE 25 MG TABLET PO SCH ×2 (08:36→20:39)
[2016-03-10] MEDS: DAKINS QUARTER STRENGTH (0.125%) 480 ML BOTTLE TOP SCH (08:37)
[2016-03-10] MEDS: Z GUARD REMEDY 2 OZ OINT TP SCH ×2 (08:38→17:03)
[2016-03-10] MEDS: GLYTROL 1,000 ML BAG GT PRN (12:15)
[2016-03-10] MEDS: INSULIN REGULAR, HUMAN 100 UNIT/ML 3 ML VIAL SQ PRN ×2 (17:04→23:51)
[2016-03-10] MEDS: PANTOPRAZOLE 40 MG VIAL IV SCH (20:39)
[2016-03-10] MEDS: FLUCONAZOLE IN NS 100 MG in PREMIX 1 EA IV SCH ×2 (20:39)
[2016-03-10] MEDS ORDERED: SECONDARY IV SET 1 EA INFUS.SET MC ONE (20:40)
[2016-03-10] MEDS ORDERED: VANCOMYCIN 1 GM in IV D5W 250 ML IV SCH (21:00)
[2016-03-11] VITALS: BP 117/69
[2016-03-11 04:00] VITALS: BP 107/66
[2016-03-11] MEDS: MEROPENEM 500 MG in IV NS 0.9% 50 ML IV SCH ×2 (05:18→13:03)
[2016-03-11] MEDS: HYDROMORPHONE 1 MG/1 ML DISP.SYRIN IV PRN ×3 (05:18→22:49)
[2016-03-11] MEDS: BLOOD SUGAR DIAGNOSTIC 1 EACH STRIP IN SCH ×4 (05:21→23:04)
[2016-03-11 07:54] LABS: CALCIUM, SERUM 7.1 mg/dL (8.5-10.1); CREATININE 0.8 mg/dL (0.6-1.3); POTASSIUM 4.3 mmol/L (3.5-5.1)
[2016-03-11 08:00] VITALS: BP 116/63
[2016-03-11] MEDS ORDERED: VANCOMYCIN 1 GM in IV D5W 250 ML IV SCH (08:00)
[2016-03-11] MEDS: DAKINS QUARTER STRENGTH (0.125%) 480 ML BOTTLE TOP SCH (09:28)
[2016-03-11] MEDS: Z GUARD REMEDY 2 OZ OINT TP SCH ×2 (09:28→17:04)
[2016-03-11] MEDS: METOPROLOL TARTRATE 25 MG TABLET PO SCH ×2 (09:28→21:08)
[2016-03-11 12:00] VITALS: BP 125/62
[2016-03-11] MEDS: INSULIN REGULAR, HUMAN 100 UNIT/ML 3 ML VIAL SQ PRN ×3 (12:13→23:03)
[2016-03-11 16:00] VITALS: BP 93/53
[2016-03-11 20:00] VITALS: BP 130/60
[2016-03-11] MEDS: PANTOPRAZOLE 40 MG VIAL IV SCH (20:04)
[2016-03-11] MEDS: FLUCONAZOLE IN NS 100 MG in PREMIX 1 EA IV SCH ×2 (20:04)
[2016-03-11] MEDS: GLYTROL 1,000 ML BAG GT PRN (20:23)
[2016-03-11] MEDS: CEFTAZIDIME 1 G in IV D5W 50 ML IV SCH (21:07)
[2016-03-11] MEDS: LINEZOLID RTU BAG 600 MG in PREMIX 1 EA IV SCH (21:07)
[2016-03-12] VITALS (7 sets, daily range): BP systolic 100–142; BP diastolic 55–80
[2016-03-12] MEDS ORDERED: IV NS 0.9% 250 ML IV ONE (01:44)
[2016-03-12] MEDS: CEFTAZIDIME 1 G in IV D5W 50 ML IV SCH ×3 (04:13→21:55)
[2016-03-12 06:54] LABS: CALCIUM, SERUM 7.2 mg/dL (8.5-10.1); CREATININE 0.7 mg/dL (0.6-1.3); POTASSIUM 4.4 mmol/L (3.5-5.1)
[2016-03-12] MEDS: BLOOD SUGAR DIAGNOSTIC 1 EACH STRIP IN SCH ×3 (07:02→18:00)
[2016-03-12] MEDS: Z GUARD REMEDY 2 OZ OINT TP SCH ×2 (09:00→17:44)
[2016-03-12] MEDS: METOPROLOL TARTRATE 25 MG TABLET PO SCH ×2 (09:00→21:08)
[2016-03-12] MEDS: DAKINS QUARTER STRENGTH (0.125%) 480 ML BOTTLE TOP SCH (09:00)
[2016-03-12] MEDS ORDERED: SECONDARY IV SET 1 EA INFUS.SET MC ONE ×2 (09:07→20:49)
[2016-03-12] MEDS: LINEZOLID RTU BAG 600 MG in PREMIX 1 EA IV SCH ×2 (09:08→22:02)
[2016-03-12] MEDS: FUROSEMIDE 20 MG TABLET PO SCH (13:00)
[2016-03-12] MEDS: INSULIN REGULAR, HUMAN 100 UNIT/ML 3 ML VIAL SQ PRN (13:31)
[2016-03-12] MEDS: HYDROMORPHONE 1 MG/1 ML DISP.SYRIN IV PRN (16:12)
[2016-03-12] MEDS: FLUCONAZOLE IN NS 100 MG in PREMIX 1 EA IV SCH ×2 (20:48)
[2016-03-12] MEDS: PANTOPRAZOLE 40 MG VIAL IV SCH (20:48)
[2016-03-12] MEDS: GLYTROL 1,000 ML BAG GT PRN (21:06)
[2016-03-13] VITALS (7 sets, daily range): BP systolic 105–130; BP diastolic 54–77
[2016-03-13] MEDS: BLOOD SUGAR DIAGNOSTIC 1 EACH STRIP IN SCH ×5 (00:02→23:13)
[2016-03-13] MEDS: INSULIN REGULAR, HUMAN 100 UNIT/ML 3 ML VIAL SQ PRN ×3 (00:03→23:21)
[2016-03-13] MEDS: CEFTAZIDIME 1 G in IV D5W 50 ML IV SCH ×3 (04:38→21:29)
[2016-03-13 06:39] LABS: BASOPHILS # (AUTO) 0.1 /CMM (0.0-0.2); BASOPHILS % (AUTO) 0.3 % (0.0-2.0); DIFF TOTAL % 100 %; EOSINOPHILS # (AUTO) 0.8 /CMM (0.0-0.7); EOSINOPHILS % (AUTO) 4.5 % (0.0-6.0); HEMATOCRIT 26 % (33-45); HEMOGLOBIN 8.8 g/dL (11.5-14.8); LYMPHOCYTES # (AUTO) 1.9 /CMM (0.8-4.8); LYMPHOCYTES % (AUTO) 10.6 % (20.0-44.0); MEAN CORPUSCULAR HEMOGLOBIN 30 PG (26.0-33.0); MEAN CORPUSCULAR HGB CONC 34 g/dl (31.0-36.0); MEAN CORPUSCULAR VOLUME 88 fL (82-100); MONOCYTES % (AUTO) 5.5 % (2.0-12.0); NEUTROPHILS # (AUTO) 14.6 /CMM (1.8-8.9); NEUTROPHILS % (AUTO) 79.1 % (43.0-81.0); PLATELET COUNT (AUTO) 270 /CMM (150-450); RED BLOOD CELL COUNT(AUTO) 2.96 MIL/uL (4.0-5.2); WHITE BLOOD COUNT (AUTO) 18.4 K/uL (4.3-11.0)
[2016-03-13 07:04] LABS: CALCIUM, SERUM 7.2 mg/dL (8.5-10.1); CREATININE 0.7 mg/dL (0.6-1.3); POTASSIUM 4.2 mmol/L (3.5-5.1)
[2016-03-13] MEDS: FUROSEMIDE 20 MG TABLET PO SCH (08:25)
[2016-03-13] MEDS: METOPROLOL TARTRATE 25 MG TABLET PO SCH ×2 (08:27→20:11)
[2016-03-13] MEDS: DAKINS QUARTER STRENGTH (0.125%) 480 ML BOTTLE TOP SCH (08:28)
[2016-03-13] MEDS: Z GUARD REMEDY 2 OZ OINT TP SCH ×2 (08:28→17:19)
[2016-03-13] MEDS: LINEZOLID RTU BAG 600 MG in PREMIX 1 EA IV SCH ×2 (09:01→23:11)
[2016-03-13 10:09] LABS: BAND % (MANUAL) 4 % (0.0-5.0); EOSINOPHILS % (MANUAL) 6 % (0-4); LYMPHOCYTES % (MANUAL) 17 % (16-48); METAMYELOCYTES % 1 % (0-0); MYELOCYTES % 5 % (0-0)
[2016-03-13 10:11] LABS: ANISOCYTOSIS 2+; PLATELET ESTIMATE ADEQUATE
[2016-03-13 10:12] LABS: HYPOCHROMASIA 1+
[2016-03-13] MEDS: GLYTROL 1,000 ML BAG GT PRN (17:22)
[2016-03-13] MEDS: FLUCONAZOLE IN NS 100 MG in PREMIX 1 EA IV SCH ×2 (19:55)
[2016-03-13] MEDS: HYDROMORPHONE 1 MG/1 ML DISP.SYRIN IV PRN (19:56)
[2016-03-13] MEDS: PANTOPRAZOLE 40 MG VIAL IV SCH (19:56)
[2016-03-13] MEDS: ONDANSETRON HCL/PF 4 MG/2 ML VIAL IV PRN (20:12)
[2016-03-14] VITALS: BP 104/60
[2016-03-14 04:00] VITALS: BP 122/62
[2016-03-14] MEDS: CEFTAZIDIME 1 G in IV D5W 50 ML IV SCH ×3 (05:18→21:15)
[2016-03-14] MEDS: BLOOD SUGAR DIAGNOSTIC 1 EACH STRIP IN SCH ×3 (05:21→18:00)
[2016-03-14 06:56] LABS: CALCIUM, SERUM 7.2 mg/dL (8.5-10.1); CREATININE 0.8 mg/dL (0.6-1.3); POTASSIUM 4.1 mmol/L (3.5-5.1)
[2016-03-14 08:00] VITALS: BP 124/69
[2016-03-14] MEDS: LINEZOLID RTU BAG 600 MG in PREMIX 1 EA IV SCH ×2 (08:26→22:06)
[2016-03-14] MEDS: METOPROLOL TARTRATE 25 MG TABLET PO SCH ×2 (08:26→21:16)
[2016-03-14] MEDS: FUROSEMIDE 20 MG TABLET PO SCH (08:27)
[2016-03-14] MEDS: Z GUARD REMEDY 2 OZ OINT TP SCH ×2 (08:27→18:07)
[2016-03-14] MEDS: DAKINS QUARTER STRENGTH (0.125%) 480 ML BOTTLE TOP SCH (08:28)
[2016-03-14] MEDS: GLYTROL 1,000 ML BAG GT PRN (09:25)
[2016-03-14 12:00] VITALS: BP 113/62
[2016-03-14] MEDS: INSULIN REGULAR, HUMAN 100 UNIT/ML 3 ML VIAL SQ PRN (12:07)
[2016-03-14 16:00] VITALS: BP 124/64
[2016-03-14 20:00] VITALS: BP 119/56
[2016-03-14] MEDS: PANTOPRAZOLE 40 MG VIAL IV SCH (20:02)
[2016-03-14] MEDS: FLUCONAZOLE IN NS 100 MG in PREMIX 1 EA IV SCH ×2 (20:03)
[2016-03-14] MEDS ORDERED: IV SET PRIMARY PUMP SET 1 EA INFUS.SET MC ONE (21:58)
[2016-03-14] MEDS ORDERED: SECONDARY IV SET 1 EA INFUS.SET MC ONE (21:58)
[2016-03-14] MEDS ORDERED: IV NS 0.9% 250 ML IV ONE (21:58)
[2016-03-15] VITALS (7 sets, daily range): BP systolic 115–145; BP diastolic 54–86
[2016-03-15] MEDS: BLOOD SUGAR DIAGNOSTIC 1 EACH STRIP IN SCH ×4 (01:19→18:23)
[2016-03-15] MEDS: INSULIN REGULAR, HUMAN 100 UNIT/ML 3 ML VIAL SQ PRN (01:21)
[2016-03-15] MEDS: GLYTROL 1,000 ML BAG GT PRN (02:10)
[2016-03-15] MEDS: CEFTAZIDIME 1 G in IV D5W 50 ML IV SCH ×3 (05:53→20:30)
[2016-03-15 06:59] LABS: BASOPHILS # (AUTO) 0.1 /CMM (0.0-0.2); BASOPHILS % (AUTO) 0.4 % (0.0-2.0); DIFF TOTAL % 100 %; EOSINOPHILS # (AUTO) 0.6 /CMM (0.0-0.7); EOSINOPHILS % (AUTO) 3.5 % (0.0-6.0); HEMATOCRIT 26 % (33-45); HEMOGLOBIN 8.7 g/dL (11.5-14.8); LYMPHOCYTES # (AUTO) 1.7 /CMM (0.8-4.8); LYMPHOCYTES % (AUTO) 9.6 % (20.0-44.0); MEAN CORPUSCULAR HEMOGLOBIN 29 PG (26.0-33.0); MEAN CORPUSCULAR HGB CONC 33 g/dl (31.0-36.0); MEAN CORPUSCULAR VOLUME 89 fL (82-100); MONOCYTES % (AUTO) 5.9 % (2.0-12.0); NEUTROPHILS # (AUTO) 13.8 /CMM (1.8-8.9); NEUTROPHILS % (AUTO) 80.6 % (43.0-81.0); PLATELET COUNT (AUTO) 256 /CMM (150-450); RED BLOOD CELL COUNT(AUTO) 2.97 MIL/uL (4.0-5.2); WHITE BLOOD COUNT (AUTO) 17.2 K/uL (4.3-11.0)
[2016-03-15 07:22] LABS: CALCIUM, SERUM 7.3 mg/dL (8.5-10.1); CREATININE 0.8 mg/dL (0.6-1.3)
[2016-03-15] MEDS: FUROSEMIDE 20 MG TABLET PO SCH (09:00)
[2016-03-15] MEDS: METOPROLOL TARTRATE 25 MG TABLET PO SCH (09:00)
[2016-03-15] MEDS: DAKINS QUARTER STRENGTH (0.125%) 480 ML BOTTLE TOP SCH (09:00)
[2016-03-15] MEDS: LINEZOLID RTU BAG 600 MG in PREMIX 1 EA IV SCH ×2 (09:07→20:31)
[2016-03-15] MEDS: Z GUARD REMEDY 2 OZ OINT TP SCH ×2 (09:13→17:00)
[2016-03-15 11:11] LABS: LYMPHOCYTES % (MANUAL) 18 % (16-48)
[2016-03-15 11:12] LABS: ANISOCYTOSIS 3+; EOSINOPHILS % (MANUAL) 2 % (0-4); METAMYELOCYTES % 1 % (0-0); MICROCYTOSIS 1+; MYELOCYTES % 1 % (0-0); PLATELET ESTIMATE ADEQUATE
[2016-03-15] MEDS ORDERED: ATRACURIUM 100MG/10 ML MDV IV ONE ×2 (13:12→15:44)
[2016-03-15] MEDS ORDERED: FENTANYL PF 100MCG/2ML AMPUL ONE ×3 (13:12→15:44)
[2016-03-15] MEDS ORDERED: ANESTHESIA TRAY IN PYXIS 1 EA TRAY MC ONE (17:14)
[2016-03-15] MEDS ORDERED: METOPROLOL TARTRATE INJ 5 MG/5 ML AMPUL IVP PRN (17:30)
[2016-03-15] MEDS ORDERED: IV D5/0.45 NACL 1,000 ML IV SCH (17:30)
[2016-03-15] MEDS ORDERED: METOPROLOL TARTRATE INJ 5 MG/5 ML AMPUL IVP SCH (17:30)
[2016-03-15] MEDS ORDERED: IV NS 0.9% 250 ML IV ONE (20:02)
[2016-03-15] MEDS ORDERED: IV SET PRIMARY PUMP SET 1 EA INFUS.SET MC ONE (20:02)
[2016-03-15] MEDS ORDERED: SECONDARY IV SET 1 EA INFUS.SET MC ONE (20:02)
[2016-03-15] MEDS: FLUCONAZOLE IN NS 100 MG in PREMIX 1 EA IV SCH ×2 (20:29)
[2016-03-15] MEDS: PANTOPRAZOLE 40 MG VIAL IV SCH (20:31)
[2016-03-16] VITALS (8 sets, daily range): BP systolic 118–145; BP diastolic 67–80
[2016-03-16] MEDS: BLOOD SUGAR DIAGNOSTIC 1 EACH STRIP IN SCH ×5 (00:45→23:39)
[2016-03-16] MEDS: INSULIN REGULAR, HUMAN 100 UNIT/ML 3 ML VIAL SQ PRN ×3 (00:46→23:41)
[2016-03-16] MEDS: CEFTAZIDIME 1 G in IV D5W 50 ML IV SCH ×3 (05:18→21:46)
[2016-03-16] MEDS: LINEZOLID RTU BAG 600 MG in PREMIX 1 EA IV SCH ×2 (08:50→21:46)
[2016-03-16] MEDS: FUROSEMIDE 20 MG/2 ML VIAL IV SCH (08:50)
[2016-03-16] MEDS: Z GUARD REMEDY 2 OZ OINT TP SCH ×2 (08:51→17:01)
[2016-03-16] MEDS: DAKINS QUARTER STRENGTH (0.125%) 480 ML BOTTLE TOP SCH (08:52)
[2016-03-16] MEDS: IV D5/0.45 NACL 1,000 ML IV PRN (17:02)
[2016-03-16] MEDS: HYDROMORPHONE 1 MG/1 ML DISP.SYRIN IV PRN (18:40)
[2016-03-16] MEDS: PANTOPRAZOLE 40 MG VIAL IV SCH (20:25)
[2016-03-16] MEDS: FLUCONAZOLE IN NS 100 MG in PREMIX 1 EA IV SCH ×2 (20:25)
[2016-03-16] MEDS ORDERED: SECONDARY IV SET 1 EA INFUS.SET MC ONE (20:27)
[2016-03-17] VITALS (8 sets, daily range): BP systolic 104–145; BP diastolic 52–87
[2016-03-17] MEDS: HYDROMORPHONE 1 MG/1 ML DISP.SYRIN IV PRN ×2 (04:15→14:42)
[2016-03-17] MEDS: CEFTAZIDIME 1 G in IV D5W 50 ML IV SCH ×2 (05:20→12:09)
[2016-03-17] MEDS: BLOOD SUGAR DIAGNOSTIC 1 EACH STRIP IN SCH ×3 (05:20→17:50)
[2016-03-17 07:13] LABS: BASOPHILS % (AUTO) 0.1 % (0.0-2.0); DIFF TOTAL % 100 %; EOSINOPHILS # (AUTO) 0.2 /CMM (0.0-0.7); HEMATOCRIT 25 % (33-45); HEMOGLOBIN 8.4 g/dL (11.5-14.8); LYMPHOCYTES # (AUTO) 1.8 /CMM (0.8-4.8); LYMPHOCYTES % (AUTO) 7.7 % (20.0-44.0); MEAN CORPUSCULAR HEMOGLOBIN 29 PG (26.0-33.0); MEAN CORPUSCULAR HGB CONC 33 g/dl (31.0-36.0); MEAN CORPUSCULAR VOLUME 89 fL (82-100); MONOCYTES # (AUTO) 0.9 /CMM (0.1-1.30); NEUTROPHILS # (AUTO) 20.1 /CMM (1.8-8.9); NEUTROPHILS % (AUTO) 87.2 % (43.0-81.0); PLATELET COUNT (AUTO) 276 /CMM (150-450); RED BLOOD CELL COUNT(AUTO) 2.86 MIL/uL (4.0-5.2)
[2016-03-17 07:14] LABS: BILIRUBIN,TOTAL 0.9 mg/dL (0.2-1.0); CALCIUM, SERUM 7.2 mg/dL (8.5-10.1); CREATININE 0.9 mg/dL (0.6-1.3); POTASSIUM 3.9 mmol/L (3.5-5.1); TOTAL PROTEIN, SERUM 4.8 g/dL (6.4-8.2)
[2016-03-17 07:16] LABS: ALBUMIN 0.9 g/dL (3.4-5.0)
[2016-03-17] MEDS: LINEZOLID RTU BAG 600 MG in PREMIX 1 EA IV SCH (08:07)
[2016-03-17] MEDS: DAKINS QUARTER STRENGTH (0.125%) 480 ML BOTTLE TOP SCH (08:08)
[2016-03-17] MEDS: Z GUARD REMEDY 2 OZ OINT TP SCH ×2 (08:09→17:50)
[2016-03-17] MEDS: FUROSEMIDE 20 MG/2 ML VIAL IV SCH (08:10)
[2016-03-17 10:55] LABS: ANISOCYTOSIS 2+; LYMPHOCYTES % (MANUAL) 10 % (16-48); PLATELET ESTIMATE ADEQUATE
[2016-03-17] MEDS: IV D5/0.45 NACL 1,000 ML IV PRN (17:50)
== END 2016-03-17 21:40 | DRG 3 ==
LOC: ER 20:49 → TELE 21:52 → MED 02-12 08:58 → TELE-TD 02-13 16:42 → ICU 02-13 18:47 → TELE-TD 03-02 12:25 → TELE1 03-05 16:12 → TELE-TD 03-15 17:21
PROVIDERS: ADMIT Legal Medicine; ATTEND Legal Medicine
PROC: 0D1B0Z4 Bypass Ileum to Cutaneous, Open Approach (ICD-10-PCS; 2016-02-13)
PROC: 0D1L0Z4 Bypass Transverse Colon to Cutaneous, Open Approach (ICD-10-PCS; 2016-02-13)
PROC: 0DTF0ZZ Resection of Right Large Intestine, Open Approach (ICD-10-PCS; 2016-02-13)
PROC: 05H533Z Insertion of Infusion Device into Right Subclavian Vein, Percutaneous Approach (ICD-10-PCS; 2016-02-13)
PROC: 5A1955Z Respiratory Ventilation, Greater than 96 Consecutive Hours (ICD-10-PCS; principal; 2016-02-14)
PROC: 0BH18EZ Insertion of Endotracheal Airway into Trachea, Via Natural or Artificial Opening Endoscopic (ICD-10-PCS; 2016-02-14)
PROC: 02HV33Z Insertion of Infusion Device into Superior Vena Cava, Percutaneous Approach (ICD-10-PCS; 2016-02-14)
PROC: B548ZZA Ultrasonography of Superior Vena Cava, Guidance (ICD-10-PCS; 2016-02-14)
PROC: 30233N1 Transfusion of Nonautologous Red Blood Cells into Peripheral Vein, Percutaneous Approach (ICD-10-PCS; 2016-02-14)
PROC: 02HV33Z Insertion of Infusion Device into Superior Vena Cava, Percutaneous Approach (ICD-10-PCS; 2016-02-25)
PROC: B548ZZA Ultrasonography of Superior Vena Cava, Guidance (ICD-10-PCS; 2016-02-25)
PROC: 0DQB0ZZ Repair Ileum, Open Approach (ICD-10-PCS; 2016-02-26)
PROC: 02HV33Z Insertion of Infusion Device into Superior Vena Cava, Percutaneous Approach (ICD-10-PCS; 2016-02-27)
PROC: B548ZZA Ultrasonography of Superior Vena Cava, Guidance (ICD-10-PCS; 2016-02-27)
PROC: 0B110F4 Bypass Trachea to Cutaneous with Tracheostomy Device, Open Approach (ICD-10-PCS; 2016-03-01)
PROC: 0DH60UZ Insertion of Feeding Device into Stomach, Open Approach (ICD-10-PCS; 2016-03-15)
PROC: 0W9F0ZZ Drainage of Abdominal Wall, Open Approach (ICD-10-PCS; 2016-03-15)
PROC: 0D1B0Z4 Bypass Ileum to Cutaneous, Open Approach (ICD-10-PCS; 2016-03-15)
DX: A41.9 Sepsis, unspecified organism (principal); E43 Unspecified severe protein-calorie malnutrition; N17.0 Acute kidney failure with tubular necrosis; R65.21 Severe sepsis with septic shock; K63.1 Perforation of intestine (nontraumatic); J96.90 Respiratory failure, unspecified, unspecified whether with hypoxia or hypercapnia; G93.40 Encephalopathy, unspecified; J18.9 Pneumonia, unspecified organism; K65.9 Peritonitis, unspecified; N39.0 Urinary tract infection, site not specified; C18.4 Malignant neoplasm of transverse colon; D62 Acute posthemorrhagic anemia; K55.9 Vascular disorder of intestine, unspecified; D68.9 Coagulation defect, unspecified; C19 Malignant neoplasm of rectosigmoid junction; E87.4 Mixed disorder of acid-base balance; I82.619 Acute embolism and thrombosis of superficial veins of unspecified upper extremity; I82.622 Acute embolism and thrombosis of deep veins of left upper extremity; J44.0 Chronic obstructive pulmonary disease with (acute) lower respiratory infection; J98.11 Atelectasis; L02.211 Cutaneous abscess of abdominal wall; T81.30XA Disruption of wound, unspecified, initial encounter; Z99.11 Dependence on respirator [ventilator] status; I10 Essential (primary) hypertension; E78.5 Hyperlipidemia, unspecified; I48.91 Unspecified atrial fibrillation; E87.6 Hypokalemia; D64.9 Anemia, unspecified; D50.9 Iron deficiency anemia, unspecified; F31.9 Bipolar disorder, unspecified; G30.9 Alzheimer's disease, unspecified; F02.80 Dementia in other diseases classified elsewhere, unspecified severity, without behavioral disturbance, psychotic disturbance, mood disturbance, and anxiety; Z95.0 Presence of cardiac pacemaker; E05.90 Thyrotoxicosis, unspecified without thyrotoxic crisis or storm; D25.9 Leiomyoma of uterus, unspecified; D69.6 Thrombocytopenia, unspecified; E03.9 Hypothyroidism, unspecified; E86.0 Dehydration; F29 Unspecified psychosis not due to a substance or known physiological condition; F48.2 Pseudobulbar affect; I48.2 Chronic atrial fibrillation; I89.0 Lymphedema, not elsewhere classified; J98.01 Acute bronchospasm; K66.0 Peritoneal adhesions (postprocedural) (postinfection); K66.8 Other specified disorders of peritoneum; N28.1 Cyst of kidney, acquired; R62.7 Adult failure to thrive; Z68.28 Body mass index [BMI] 28.0-28.9, adult; Z87.440 Personal history of urinary (tract) infections; Z93.0 Tracheostomy status; Z93.3 Colostomy status
CPT/HCPCS: 31720; 36415; 36569; 36600; 71010-TC; 72192-TC; 74000-TC; 74150-TC; 76770-TC; 80048-TC; 80053-TC; 80061-TC; 80076-TC; 80202-TC; 81000-TC; 82248-TC; 82306; 82570-TC; 82728-TC; 82803-TC; 82962-TC; 83540-TC; 83605-TC; 83735-TC; 84100-TC; 84300-TC; 84439-TC; 84443-TC; 84478-TC; 84484-TC; 85025-TC; 85027-TC; 85385-TC; 85610-TC; 85730-TC; 86850-TC; 86901; 86921-TC; 87040-TC; 87070-TC; 87081-TC; 87086-TC; 87186-TC; 88305-TC; 88309-TC; 92521; 93307-TC; 93971-TC; 94002-TC; 94003-TC; 94640-TC; 94760-TC; 94799-TC; 97001-TC; 97110-TC; 97530-TC; 99082-TC; A4216; A4217; A4606; A6209; A6253; A6402; A6403; A7526; C1751; C1769; C9113; J0330; J0690; J0713; J1170; J1200; J1450; J1650; J1815; J1940; J2020; J2185; J2248; J2370; J2405; J2543; J2704; J2916; J3010; J3370; J3475; J3480; J3490; J7030; J7040; J7050; J7060; P9016-BL; P9045; P9047; Q9963; Q9967; Z7610